=== PATIENT | female | born 1965 | race Caucasian/White ===

== ENCOUNTER 2016-06-21 11:22 | Outpatient (CLI) | payer OTHER | END 2016-06-21 11:23 | disposition home or self-care (01) | DX: K76.0 Fatty (change of) liver, not elsewhere classified (principal); R79.89 Other specified abnormal findings of blood chemistry ==

== ENCOUNTER 2016-06-22 15:46 | Outpatient (CLI) | payer OTHER | END 2016-06-22 15:47 | disposition home or self-care (01) | DX: G47.33 Obstructive sleep apnea (adult) (pediatric) (principal) ==

== ENCOUNTER 2016-08-04 05:14 | Emergency (ER) | payer OTHER ==
[2016-08-04] MEDS ORDERED: HYDROmorphone 1 MG/ML SYRINGE IVP STA ×2 (05:49→10:35)
[2016-08-04] MEDS ORDERED: ONDANSETRON 4 MG/2 ML VIAL IVP STA (05:49)
[2016-08-04] MEDS ORDERED: HYDROmorphone 1 MG/ML SYRINGE ONE ×2 (05:50→10:42)
[2016-08-04] MEDS ORDERED: ONDANSETRON 4 MG/2 ML VIAL ONE (05:50)
[2016-08-04] MEDS: SODIUM CHLORIDE 0.9% 1,000 ML IV STA ×2 (06:11→10:57)
[2016-08-04] MEDS ORDERED: IOPAMIDOL-300 100 ML VIAL IVP ONE (07:13)
[2016-08-04] MEDS ORDERED: AMPICILLIN/SULBACTAM 1.5 GM in SODIUM CHLORIDE 0.9% MINIBAG 100 ML IV STA (10:42)
[2016-08-04] MEDS ORDERED: metroNIDAZOLE 500 MG/100 ML 100 ML IV ONE (10:42)
[2016-08-04] MEDS ORDERED: methylPREDNISolone SUCCINATE 40 MG/ML VIAL IVP STA (11:03)
[2016-08-04] MEDS ORDERED: metroNIDAZOLE 500 MG/100 ML 100 ML ONE (11:22)
[2016-08-04] MEDS ORDERED: methylPREDNISolone SUCCINATE 40 MG/ML VIAL ONE (11:22)
== END 2016-08-04 12:39 | disposition short-term general hospital (02) ==
DX: K50.914 Crohn's disease, unspecified, with abscess (principal); K57.30 Diverticulosis of large intestine without perforation or abscess without bleeding; I10 Essential (primary) hypertension; G47.30 Sleep apnea, unspecified; Z87.891 Personal history of nicotine dependence
CPT/HCPCS: 36415; 74177; 80053; 83690; 85025; 96361; 96374; 96375; 96376; 99284; 99285; J1170; Q9967

== ENCOUNTER 2016-08-04 12:44 | Outpatient (CLI) | payer OTHER | END 2016-08-04 12:45 | disposition short-term general hospital (02) | DX: R10.9 Unspecified abdominal pain (principal) | CPT/HCPCS: A0425; A0427 ==

== ENCOUNTER 2016-09-24 10:29 | Emergency (ER) | payer OTHER ==
--- NOTE | 2016-09-24 11:26 | ED Physician Documentation ---
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 denies: Fever, Chills Throat: denies: Sore throat Cardiac: reports: Chest pain / pressure Respiratory: reports: Dyspnea. denies: Cough GI: denies: Abdominal Pain, Nausea, Vomiting Musculoskeletal: denies: Extremity swelling Endocrine: denies: Easy bruising / bleeding Immunocompromised: denies: Immunocompromised PD PAST MEDICAL HISTORY - Past Medical History Cardiovascular: Hypertension Respiratory: Sleep apnea, CPAP use Neuro: None Endocrine/Autoimmune: None GI: Crohn's disease, Other : None HEENT: None Psych: Depression Musculoskeletal: None Derm: None - Past Surgical History Past Surgical History: Yes General: Colonoscopy - Present Medications Home Medications: Ambulatory Orders Medication Instructions Recorded Confirmed Mesalamine [Delzicol] 400 mg PO QID #120 capsule 02/23/16 09/24/16 Prednisone 10 mg PO DAILY 09/24/16 09/24/16 - Allergies Allergies/Adverse Reactions: Allergies Allergy/AdvReac Type Severity Reaction Status Date / Time No Known Drug Allergies Allergy Verified 08/04/16 05:30 - Social History Does the pt smoke?: No Smoking Status: Former smoker Does the pt drink ETOH?: No Does the pt have substance abuse?: No - Immunizations Immunizations are current?: Yes - POLST Patient has POLST: No PD ED PE NORMAL - Vitals Vital signs reviewed: Yes - General General: Alert and oriented X 3 - HEENT HEENT: Atraumatic - Cardiac Cardiac: RRR - Respiratory Respiratory: No respiratory distress, Clear bilaterally - Abdomen Abdomen: Soft, Non tender - Derm Derm: Normal color - Extremities Extremities: No deformity, No edema, No calf tenderness / cord - Neuro Neuro: Alert and oriented X 3 Results - Vitals Vitals: Vital Signs - 24 hr 09/24/16 09/24/16 09/24/16 10:30 10:35 12:47 Temperature 36.3 C L 36.7 C Heart Rate 71 75 70 Respiratory 19 18 19 Rate Blood Pressure 119/49 L 152/98 H 134/69 H O2 Saturation 98 99 97 09/24/16 09/24/16 09/24/16 14:06 15:30 16:29 Temperature Heart Rate 71 75 78 Respiratory 17 16 15 Rate Blood Pressure 143/83 H 133/65 H 118/57 L O2 Saturation 100 96 96 09/24/16 18:22 Temperature 36.9 C Heart Rate 67 Respiratory 96 H Rate Blood Pressure 126/69 O2 Saturation 16 L Oxygen O2 Source Room air - EKG (time done) 1041 Rate: Rate (enter#) Rhythm: NSR Intervals: Normal PA Ischemia: Normal ST segments - Labs Labs: Laboratory Tests 09/24/16 09/24/16 09/24/16 11:20 11:20 11:20 WBC 10.6 RBC 4.50 Hgb 11.8 L Hct 35.9 L MCV 79.9 L MCH 26.2 L MCHC 32.8 RDW 18.6 H Plt Count 273 MPV 8.6 Neut # 8.7 H Lymph # 1.4 L [place] # 0.4 Eos # 0.0 Baso # 0.1 Absolute Nucleated RBC 0.00 Nucleated RBCs 0.0 Sodium 138 Potassium 3.7 Chloride 104 Carbon Dioxide 25 Anion Gap 9.0 BUN 14 Creatinine 0.8 Estimated GFR (MDRD) 75 L Glucose 139 H Calcium 9.4 Total Bilirubin 0.5 AST 25 ALT 30 Alkaline Phosphatase 84 Troponin I < 0.04 Total Protein 7.3 Albumin 3.8 Globulin 3.5 Albumin/Globulin Ratio 1.1 Lipase 29 - Rads (name of study) CXR Radiology: See rad report (NACPD) PD MEDICAL DECISION MAKING - ED course ED course: EKG trop neg but episodes were brief so doubt AR, more concerned with new onset / untsable angina admitting to [facility] unlikely to be fruitful as pt really needs stress testing which is not available from ER or inpt here called cardio Torie spoke to Dr Ray who will speak with hospitalist re accepting pt in transfer pt given asa in ER as well as nitro paste which relieved the episode of pain she was having tele showed sig ectopy spoke to cardio and then hospitalist at [facility] and pt is accepted in transfer Departure - Departure Disposition: 02 Transfer Acute Care Hosp Clinical Impression: New-onset angina Condition: Good Discharge Date/Time: 09/24/16 18:36
[2016-09-24 11:39] LABS: BASOPHILS # (AUTO) 0.1 10^3/uL (0.0-0.1); BASOPHILS % (AUTO) 0.5 %; EOSINOPHILS % (AUTO) 0.2 %; HCT - HEMATOCRIT 35.9 % (37.0-47.0); HGB - HEMOGLOBIN 11.8 g/dL (12.0-16.0); LYMPHOCYTES # (AUTO) 1.4 10^3/uL (1.5-3.5); LYMPHOCYTES % (AUTO) 13.1 %; MEAN CORPUSCULAR HEMOGLOBIN 26.2 pg (27.0-31.0); MEAN CORPUSCULAR HGB CONC 32.8 g/dL (32.0-36.0); MEAN CORPUSCULAR VOLUME 79.9 fL (81.0-99.0); MEAN PLATELET VOLUME 8.6 fL (7.9-10.8); MONOCYTES # (AUTO) 0.4 10^3/uL (0.0-1.0); MONOCYTES % (AUTO) 3.6 %; NEUTROPHILS # (AUTO) 8.7 10^3/uL (1.5-6.6); NEUTROPHILS % (AUTO) 82.6 %; RED CELL DISTRIBUTION WIDTH 18.6 % (12.0-15.0); UNCORRECTED WHITE BLOOD COUNT 10.6 x10^3/uL; WHITE BLOOD COUNT 10.6 x10^3/uL (4.8-10.8)
[2016-09-24 11:48] LABS: ALBUMIN/GLOBULIN RATIO 1.1 (1.0-2.2); BILIRUBIN,TOTAL 0.5 mg/dL (0.2-1.0); CALCIUM 9.4 mg/dL (8.5-10.3); CREATININE 0.8 mg/dL (0.4-1.0); POTASSIUM 3.7 mmol/L (3.5-5.0); TOTAL PROTEIN 7.3 g/dL (6.7-8.2)
--- NOTE | 2016-09-24 12:15 | XRAY Preliminary Report ---
Exam: XR Chest 2 View PA/LAT IMPRESSION: No active disease [facility] SITE ID: [id number]
--- NOTE | 2016-09-24 12:20 | XRAY Report ---
EXAM: CHEST RADIOGRAPHY EXAM DATE: 09/24/2016 12:01 PM. CLINICAL HISTORY: Chest pain. COMPARISON: 02/05/2016. TECHNIQUE: 2 views. FINDINGS: Lungs/Pleura: No focal opacities evident. No pleural effusion. No pneumothorax. Normal volumes. Mediastinum: Heart and mediastinal contours are unremarkable. Other: None. IMPRESSION: No active disease. [facility] Referring Provider Line: [phone] SITE ID: [id number]
[2016-09-24] MEDS ORDERED: NITROGLYCERIN 2% PASTE TOP ONE (14:02)
[2016-09-24] MEDS ORDERED: ASPIRIN CHEW 81 MG TABLET ONE (14:02)
[2016-09-24] MEDS: ASPIRIN CHEW 81 MG TABLET PO STA (14:04)
[2016-09-24] MEDS: NITROGLYCERIN 2% PASTE TOP STA (14:04)
[2016-09-24] MEDS: MESALAMINE 400 MG CAPSULE PO STA (14:34)
[2016-09-24] MEDS ORDERED: ACETAMINOPHEN 325 MG TABLET PO ONE (17:17)
[2016-09-24] MEDS: ACETAMINOPHEN 325 MG TABLET PO STA (17:19)
[2016-09-24 18:23] VITALS: BP 126/69
== END 2016-09-24 18:36 | disposition short-term general hospital (02) ==
LOC: ED 10:29
DX: I20.9 Angina pectoris, unspecified (principal); I10 Essential (primary) hypertension; G47.30 Sleep apnea, unspecified; K50.90 Crohn's disease, unspecified, without complications; Z87.891 Personal history of nicotine dependence
CPT/HCPCS: 36415; 71020; 80053; 83690; 84484; 85025; 93005; 93010; 99284; 99285

== ENCOUNTER 2016-09-24 18:39 | Outpatient (CLI) | payer OTHER | END 2016-09-24 18:40 | disposition short-term general hospital (02) | DX: R07.9 Chest pain, unspecified (principal) | CPT/HCPCS: A0425; A0426 ==

== ENCOUNTER 2016-10-12 08:52 | Emergency (ER) | payer OTHER ==
[2016-10-12] MEDS ORDERED: SODIUM CHLORIDE 0.9% 1,000 ML IV ONE (09:55)
[2016-10-12] MEDS ORDERED: HYDROmorphone 1 MG/ML SYRINGE IVP STA (10:20)
[2016-10-12] MEDS ORDERED: ONDANSETRON 4 MG/2 ML VIAL IVP STA (10:20)
[2016-10-12] MEDS ORDERED: HYDROmorphone 1 MG/ML SYRINGE ONE (10:20)
[2016-10-12] MEDS ORDERED: ONDANSETRON 4 MG/2 ML VIAL ONE (10:20)
== END 2016-10-12 14:15 | disposition home or self-care (01) ==
DX: K50.014 Crohn's disease of small intestine with abscess (principal); E86.0 Dehydration; M79.602 Pain in left arm; I10 Essential (primary) hypertension; Z87.891 Personal history of nicotine dependence
CPT/HCPCS: 36415; 51701; 80053; 81001; 81003; 83605; 83690; 84484; 85025; 96361; 96374; 96375; 99284; 99285; J1170

== ENCOUNTER 2017-11-27 08:21 | Emergency (ER) | payer BC, OTHER ==
--- NOTE | 2017-11-27 08:52 | ED Physician Documentation ---
PD HPI HEADACHE - Stated complaint Stated Complaint: N/V/HEADACHE - History obtained from History obtained from: Patient PD PAST MEDICAL HISTORY - Past Medical History Cardiovascular: Hypertension Respiratory: Sleep apnea, CPAP use Endocrine/Autoimmune: None GI: GERD, C.difficile, Hemorrhoids, Crohn's disease, Other : None HEENT: None Psych: Depression Musculoskeletal: None Derm: None - Past Surgical History Past Surgical History: Yes General: Colonoscopy - Present Medications Home Medications: Ambulatory Orders Medication Instructions Recorded Confirmed Fluoxetine HCl [Prozac] 40 mg PO DAILY 10/21/16 09/14/17 azaTHIOprine [Imuran] 1 tab ORAL DAILY 12/02/16 07/15/17 Ondansetron Odt [Zofran Odt] 1 tab ORAL Q8HR 09/14/17 09/14/17 - Allergies Allergies/Adverse Reactions: Allergies Allergy/AdvReac Type Severity Reaction Status Date / Time No Known Drug Allergies Allergy Verified 11/27/17 08:40 - Social History Does the pt smoke?: No Smoking Status: Former smoker Does the pt drink ETOH?: No Does the pt have substance abuse?: No - Immunizations Immunizations are current?: Yes - POLST Patient has POLST: No Results - Vitals Vitals: Oxygen O2 Source Room air PD MEDICAL DECISION MAKING - Sepsis Event Vital Signs: Oxygen O2 Source Room air
[2017-11-27] MEDS ORDERED: ONDANSETRON 4 MG/2 ML VIAL IVP STA ×2 (09:08→16:34)
[2017-11-27] MEDS ORDERED: SODIUM CHLORIDE 0.9% 1,000 ML IV ONE ×2 (09:08→10:41)
[2017-11-27] MEDS ORDERED: HYDROmorphone 1 MG/ML CARPUJECT IVP STA ×2 (09:08→16:34)
[2017-11-27] MEDS ORDERED: KETOROLAC 15 MG/ML VIAL IVP STA (09:09)
[2017-11-27] MEDS ORDERED: DEXAMETHASONE 10 MG/ML VIAL IVP STA (09:09)
--- NOTE | 2017-11-27 09:10 | ED Physician Documentation ---
PD HPI ABD PAIN - Stated complaint Stated Complaint: N/V/HEADACHE - Chief complaint Chief Complaint: Abd Pain - History obtained from History obtained from: Patient - History of Present Illness Timing - onset: How many days ago (2) Timing - duration: Days (2) Timing - details: Gradual onset, Still present Quality: Cramping, Aching, Pain Location: Periumbilical, Other (lower abdomen) Improved by: Laying still. No: Eating Worsened by: Position (lying flat), Palpation. No: Eating Associated symptoms: Nausea, Constipation. No: Fever, Vomiting, Diarrhea, Melena, Dysuria, Chest pain, Dizzy Similar symptoms before: Diagnosis (infections or abscesses related to Crohns.) Recently seen: Clinic (She had a Remicade infusion a week ago and usually will feel better within a few days after that. She is having increasing pain since that time.), Other (She had abd MRI done 11/17/17 which showed no liver lesions ( report from [facility])) Review of Systems Constitutional: reports: Myalgias. denies: Fever, Chills Nose: denies: Rhinorrhea / runny nose, Congestion Throat: denies: Sore throat Cardiac: denies: Chest pain / pressure, Palpitations Respiratory: denies: Dyspnea, Cough GI: reports: Abdominal Pain, Nausea, Constipation. denies: Abdominal Swelling, Vomiting, Diarrhea : denies: Dysuria, Frequency Skin: denies: Rash Neurologic: reports: Generalized weakness, Headache. denies: Focal weakness, Numbness, Near syncope Endocrine: denies: Weight loss, Easy bruising / bleeding Immunocompromised: reports: Immunocompromised (Remicaide regularly. h/o Crohns.) PD PAST MEDICAL HISTORY - Past Medical History Cardiovascular: Hypertension Respiratory: Sleep apnea, CPAP use Endocrine/Autoimmune: None GI: GERD, C.difficile, Hemorrhoids, Crohn's disease, Other : None HEENT: None Psych: Depression Musculoskeletal: None Derm: None - Past Surgical History Past Surgical History: Yes General: Colonoscopy - Present Medications Home Medications: Ambulatory Orders Medication Instructions Recorded Confirmed Fluoxetine HCl [Prozac] 40 mg PO DAILY 10/21/16 09/14/17 azaTHIOprine [Imuran] 1 tab ORAL DAILY 12/02/16 07/15/17 Ondansetron Odt [Zofran Odt] 1 tab ORAL Q8HR 09/14/17 09/14/17 - Allergies Allergies/Adverse Reactions: Allergies Allergy/AdvReac Type Severity Reaction Status Date / Time No Known Drug Allergies Allergy Verified 11/27/17 08:40 - Social History Does the pt smoke?: No Smoking Status: Never smoker Does the pt drink ETOH?: No Does the pt have substance abuse?: No - Family History Family history: reports: Non contributory - Immunizations Immunizations are current?: Yes - POLST Patient has POLST: No PD ED PE NORMAL - Vitals Vital signs reviewed: Yes - General General: Alert and oriented X 3, Well developed/nourished, Other (appears in pain. ) - HEENT HEENT: Ears normal, Pharynx benign. No: Moist mucous membranes - Neck Neck: Supple, no meningeal sign, No adenopathy - Cardiac Cardiac: RRR, No murmur - Respiratory Respiratory: Clear bilaterally - Abdomen Abdomen: Soft, Non distended, No organomegaly, Other (Diffuse lower abd tenderness. Tender to percussion with mild rebound. No referred tenderness from upper abd. Bowel sounds diminished. ) - Female Female : Deferred - Rectal Rectal: Deferred - Back Back: No CVA TTP - Derm Derm: Normal color, Warm and dry - Extremities Extremities: No deformity, No tenderness to palpate, Normal ROM s pain, No edema , No calf tenderness / cord - Neuro Neuro: Alert and oriented X 3, No motor deficit, Normal speech Eye Opening: Spontaneous Motor: Obeys Commands Verbal: Oriented GCS Score: 15 - Psych Psych: Normal mood, Normal affect Results - Vitals Vitals: Vital Signs - 24 hr 11/27/17 11/27/17 11/27/17 08:51 08:56 09:00 Temperature 37.3 C 37.3 C Heart Rate 79 80 Respiratory 16 15 Rate Blood Pressure 133/64 H 133/64 H O2 Saturation 100 100 11/27/17 12:48 Temperature Heart Rate 68 Respiratory 16 Rate Blood Pressure 120/68 O2 Saturation 99 Oxygen O2 Source Room air - Labs Labs: Laboratory Tests 11/27/17 11/27/17 11/27/17 08:55 08:55 08:55 WBC 19.8 H RBC 4.72 Hgb 13.9 Hct 42.2 MCV 89.4 MCH 29.4 MCHC 32.8 RDW 14.1 Plt Count 266 MPV 9.0 Neut # (Auto) 16.8 H Lymph # (Auto) 1.1 L [place] # (Auto) 1.7 H Eos # (Auto) 0.0 Baso # (Auto) 0.1 Absolute Nucleated RBC 0.00 Nucleated RBC % 0.0 ESR 27 Sodium 135 Potassium 3.5 Chloride 97 L Carbon Dioxide 24 Anion Gap 14.0 H BUN 11 Creatinine 1.0 Estimated GFR (MDRD) 58 L Glucose 155 H Lactic Acid Calcium 9.5 Total Bilirubin 1.9 H AST 33 ALT 37 Alkaline Phosphatase 115 Total Protein 9.4 H Albumin 4.2 Globulin 5.2 H Albumin/Globulin Ratio 0.8 L Lipase 17 L Urine Color Urine Clarity Urine pH Ur Specific [place] Urine Protein Urine Glucose (UA) Urine Ketones Urine Occult Blood Urine Nitrite Urine Bilirubin Urine Urobilinogen Ur Leukocyte Esterase Urine RBC Urine WBC Ur Squamous Epith Cells Urine Bacteria Ur Microscopic Review Urine Culture Comments 11/27/17 11/27/17 09:36 13:01 WBC RBC Hgb Hct MCV MCH MCHC RDW Plt Count MPV Neut # (Auto) Lymph # (Auto) [place] # (Auto) Eos # (Auto) Baso # (Auto) Absolute Nucleated RBC Nucleated RBC % ESR Sodium Potassium Chloride Carbon Dioxide Anion Gap BUN Creatinine Estimated GFR (MDRD) Glucose Lactic Acid 1.6 Calcium Total Bilirubin AST ALT Alkaline Phosphatase Total Protein Albumin Globulin Albumin/Globulin Ratio Lipase Urine Color DARK YELLOW Urine Clarity CLEAR Urine pH 7.0 Ur Specific [place] 1.010 Urine Protein TRACE Urine Glucose (UA) NEGATIVE Urine Ketones 40 H Urine Occult Blood NEGATIVE Urine Nitrite NEGATIVE Urine Bilirubin NEGATIVE Urine Urobilinogen 1 (NORMAL) Ur Leukocyte Esterase MODERATE H Urine RBC 0-5 Urine WBC 6-10 H Ur Squamous Epith Cells FEW Squamous Urine Bacteria Many H Ur Microscopic Review INDICATED Urine Culture Comments INDICATED - Rads (name of study) abd/pelvic CT Radiology: Prelim report reviewed (several (7-8) liver lesions heterogenous compatible with mets or abscesses. Sigmoid diverticulitis with local inflammation and some local fistulas, comparable to July 2016. ) PD MEDICAL DECISION MAKING - ED course Complexity details: reviewed results (new liver lesions and some diverticulitis , without these lesions present on recent abd MRI, suggesting abscesses. ), re- evaluated patient, considered differential, d/w patient, d/w [facility] consultant (Dr. Goncalves) - Sepsis Event Vital Signs: Vital Signs - 24 hr 11/27/17 11/27/17 11/27/17 08:51 08:56 09:00 Temperature 37.3 C 37.3 C Heart Rate 79 80 Respiratory 16 15 Rate Blood Pressure 133/64 H 133/64 H O2 Saturation 100 100 11/27/17 12:48 Temperature Heart Rate 68 Respiratory 16 Rate Blood Pressure 120/68 O2 Saturation 99 Oxygen O2 Source Room air Departure - Departure Disposition: 02 Transfer Acute Care Hosp Clinical Impression: Exacerbation of Crohn's disease with abscess, Liver abscess, Diverticulitis of gastrointestinal tract Abdominal pain Qualifiers: Abdominal location: lower abdomen, unspecified Qualified Code(s): R10.30 - Lower abdominal pain, unspecified Condition: Stable Record reviewed to determine appropriate education?: Yes
[2017-11-27 09:25] LABS: BASOPHILS # (AUTO) 0.1 10^3/uL (0.0-0.1); BASOPHILS % (AUTO) 0.7 %; HGB - HEMOGLOBIN 13.9 g/dL (12.0-16.0); LYMPHOCYTES # (AUTO) 1.1 10^3/uL (1.5-3.5); LYMPHOCYTES % (AUTO) 5.7 %; MEAN CORPUSCULAR HEMOGLOBIN 29.4 pg (27.0-31.0); MEAN CORPUSCULAR HGB CONC 32.8 g/dL (32.0-36.0); MEAN CORPUSCULAR VOLUME 89.4 fL (81.0-99.0); MONOCYTES # (AUTO) 1.7 10^3/uL (0.0-1.0); MONOCYTES % (AUTO) 8.7 %; NEUTROPHILS # (AUTO) 16.8 10^3/uL (1.5-6.6); NEUTROPHILS % (AUTO) 84.9 %; PLT - PLATELET COUNT 266 10^3/uL (130-450); RED BLOOD COUNT 4.72 10^6/uL (4.20-5.40); RED CELL DISTRIBUTION WIDTH 14.1 % (12.0-15.0); WHITE BLOOD COUNT 19.8 x10^3/uL (4.8-10.8)
[2017-11-27 09:31] LABS: ALBUMIN 4.2 g/dL (3.2-5.5); ALBUMIN/GLOBULIN RATIO 0.8 (1.0-2.2); BILIRUBIN,TOTAL 1.9 mg/dL (0.2-1.0); CALCIUM 9.5 mg/dL (8.5-10.3); TOTAL PROTEIN 9.4 g/dL (6.7-8.2)
[2017-11-27] MEDS ORDERED: IOPAMIDOL-300 100 ML VIAL ONE (11:51)
[2017-11-27] MEDS ORDERED: IOPAMIDOL-300 100 ML VIAL IVP ONE (11:55)
--- NOTE | 2017-11-27 12:54 | CT Report ---
Procedure Date: 11/27/2017 Accession Number: [id number] / [id number] Procedure: CT - Abdomen/Pelvis W/ CPT Code: FULL RESULT: EXAM: CT ABDOMEN AND PELVIS EXAM DATE: 11/27/2017 11:59 AM. CLINICAL HISTORY: Abdominal pain. History of Crohn's. Worse pain and leukocytosis. COMPARISONS: 06/21/2016. 08/04/2016. TECHNIQUE: Routine helical CT imaging was performed through the abdomen and pelvis. IV contrast: 100 mL of Isovue-300. Enteric contrast: No. Reconstructions: Coronal and sagittal. In accordance with CT protocol optimization, one or more of the following dose reduction techniques were utilized for this exam: automated exposure control, adjustment of mA and/or KV based on patient size, or use of iterative reconstructive technique. FINDINGS: Lung Bases: Lung bases are clear. Included portions of the heart are unremarkable. Liver: Interval development of seven new hepatic lesions, heterogeneous, in the left lobe the largest measuring 1.9 x 1.6 cm , in segment 8/6 measuring 2 x 1.7 cm, also present in the inferior right lobe along segment 7/6 measuring 2.2 x 1.5 cm, and inferiorly in the right lobe measuring 2.3 x 2 cm. These are new compared to 08/04/2016. Patent portal vein. Hepatic veins are patent. No intrahepatic ductal dilatation Gallbladder/Bile Ducts: Unremarkable. Spleen: Normal. Pancreas: Normal. Adrenal Glands: Normal. Kidneys: Kidneys enhance symmetrically. No hydronephrosis. No nephrolithiasis. Delayed images are unremarkable of the kidneys. Peritoneal Cavity/Bowel: Stomach is nondistended. No evidence of a small bowel obstruction. Thickening and tethering of a distal small bowel loop in the pelvis with the cecum is again seen, although with less than inflammatory changes. Some tethering and areas of likely fibrosis or fistula tether and extending to the anterior superior presacral space. Small to moderate volume of stool is seen in the colon. Diverticula in the distal colon. Thickening of the mid-lower sigmoid colon . No intra-abdominal fluid collection. Small fatty umbilical hernia. No free air. Appendix not distinctly seen. Pelvic Organs: Urinary bladder is mildly distended and unremarkable. Uterus is unremarkable. No pelvic free fluid. No pelvic fluid collections. There appears to a thin track extending from the distal small bowel/cecum to the sigmoid colon, seen best on axial images 67-70 and on image 75, also extending posteriorly possibly through a fistulous track to the presacral space, although less extensive in appearance compared to 08/04/2016. Vasculature: Vascular calcifications. No aneurysm. Bones: No acute osseous abnormalities. Mild degenerative changes of the lower thoracic and lumbar spine. Other: None. IMPRESSION: 1. Approximately seven new heterogeneous hepatic lesions compared to 08/04/2016. Differential considerations include metastatic lesions versus abscesses. 2. Tethering and areas of fibrosis and likely small areas of fistula formation in the pelvis between distal small bowel, cecum and sigmoid colon, although with significant improvement of inflammatory changes and resolution of the fluid collections compared to 08/04/2016 CT. No new fluid collections. 3. Mild thickening of sigmoid colon which may be due to mild colitis versus focal diverticulitis. 4. Colonic diverticulosis. No bowel obstruction. 5. No nephrolithiasis. No hydronephrosis. [facility]
[2017-11-27 13:10] LABS: GLUCOSE, URINE (UA) NEGATIVE (NEGATIVE); KETONES,URINE (UA) 40 mg/dL (NEGATIVE); LEUKOCYTE ESTERASE, URINE MODERATE (NEGATIVE); NITRITE,URINE NEGATIVE (NEGATIVE); OCCULT BLOOD,URINE NEGATIVE (NEGATIVE); PROTEIN,URINE TRACE mg/dL (NEGATIVE); UROBILINOGEN,URINE 1 (NORMAL) E.U./dL (NORMAL)
[2017-11-27 13:17] LABS: BILIRUBIN,URINE NEGATIVE (NEGATIVE); CLARITY,URINE CLEAR (CLEAR); ICTOTEST,URINE NEGATIVE
[2017-11-27] MEDS ORDERED: AMPICILLIN/SULBACTAM 1.5 GM in SODIUM CHLORIDE 0.9% MINIBAG 100 ML IV STA (13:35)
[2017-11-27 13:37] LABS: BACTERIA,URINE Many /HPF (None Seen); RBC,URINE 0-5 /HPF (0-5); SQUAMOUS EPITHELIAL CELL,UR FEW Squamous (<= Few)
[2017-11-27] MEDS ORDERED: metroNIDAZOLE 500 MG/100 ML 500 MG/100 ML BAG IV ONE (14:29)
[2017-11-27 15:21] VITALS: BP 127/66
[2017-11-27] MEDS ORDERED: HYDROmorphone 1 MG/ML CARPUJECT ONE (16:46)
[2017-11-27] MEDS ORDERED: ONDANSETRON 4 MG/2 ML VIAL ONE (16:46)
== END 2017-11-27 16:45 | disposition short-term general hospital (02) ==
LOC: ED 08:21
DX: K50.914 Crohn's disease, unspecified, with abscess (principal); K75.0 Abscess of liver; K57.92 Diverticulitis of intestine, part unspecified, without perforation or abscess without bleeding; Z79.899 Other long term (current) drug therapy
CPT/HCPCS: 36415; 74177; 80053; 81001; 83605; 83690; 85025; 85651; 87086; 96361; 96365; 96366; 96367; 96375; 96376; 99284; 99285; J1170; Q9967; 81003

== ENCOUNTER 2017-12-28 09:43 | Outpatient (CLI) | payer BC, OTHER ==
[2017-12-28] MEDS ORDERED: IOPAMIDOL-300 50 ML VIAL ONE (10:01)
[2017-12-28] MEDS ORDERED: IOPAMIDOL-300 100 ML VIAL ONE (10:02)
[2017-12-28] MEDS ORDERED: IOPAMIDOL-300 50 ML VIAL PO ONE (11:21)
[2017-12-28] MEDS ORDERED: IOPAMIDOL-300 100 ML VIAL IVP ONE (11:21)
--- NOTE | 2017-12-28 13:51 | CT Report ---
Procedure Date: 12/28/2017 Accession Number: [id number] / [id number] Procedure: CT - Abdomen W/ CPT Code: FULL RESULT: EXAM: Abdomen W/ DATE: 12/28/2017 11:24 AM CLINICAL HISTORY: ABSCESS: LIVER, CHROHNS ILEOCOLITIS COMPARISON: CT abdomen pelvis 11/27/2017. TECHNIQUE: Routine helical CT imaging was performed through the abdomen. IV contrast: 100 mL Isovue 300. Enteric contrast: Yes.. Reconstruction: Coronal and sagittal. In accordance with CT protocol optimization, one or more of the following dose reduction techniques were utilized for this exam: automated exposure control, adjustment of mA and/or KV based on patient size, or use of iterative reconstructive technique. FINDINGS: Lung Bases: Unremarkable. Liver: Some of the previously seen hypodense hepatic masses are not as well-seen on today's exam, a total 5 are clearly identified and have enlarged in size with newly identifiable central enhancement and peripheral hypodensity: Segment II 2.6 x 1.8 cm (previously 1.6 x 2.0 cm). Segment IVb 1.8 x 1.5 cm (remeasurement in similar planes not feasible). Segment V 3.0 x 2.0 cm (previously 2.3 x 1.6 cm). Segment 2.4 x 2.5 cm (previously 2.1 x 1.9 cm). Segment VIII 2.5 x 2.4 cm (previously 1.7 x 1.5 cm). No new hepatic lesions. Gallbladder/Bile Ducts: Unremarkable. Spleen: Normal. Pancreas: Normal. No masses or ductal obstruction. Adrenal Glands: Normal. Kidneys: Normal. No masses or hydronephrosis. Peritoneal Cavity/Bowel: Normal. No free fluid, free air or adenopathy. No masses or acute inflammatory process. Vasculature: No aneurysms or other significant abnormality. Bones: No significant abnormality Other: None. IMPRESSION: Interval enlargement of multiple previously seen hepatic lesions, while some are no longer seen. Interval growth and change in appearance favors metastatic disease, hepatic abscesses/phlegmon not excluded. [facility]
== END 2017-12-28 09:44 | disposition home or self-care (01) ==
LOC: DI 09:43
PROVIDERS: ATTEND Internal Medicine
DX: K75.0 Abscess of liver (principal); K50.80 Crohn's disease of both small and large intestine without complications; K76.9 Liver disease, unspecified
CPT/HCPCS: 74160; Q9967

== ENCOUNTER 2018-01-12 08:44 | Outpatient (CLI) | payer BC, OTHER | END 2018-01-12 08:45 | disposition home or self-care (01) | LOC: SC 08:44 | PROVIDERS: ATTEND Nurse Practitioner Family | DX: G47.33 Obstructive sleep apnea (adult) (pediatric) (principal) | CPT/HCPCS: 99212; 99214 ==

== ENCOUNTER 2018-01-13 06:14 | Outpatient (CLI) | payer BC, OTHER ==
[2018-01-13] MEDS ORDERED: IOPAMIDOL-300 100 ML VIAL ONE (06:32)
[2018-01-13 07:02] LABS: CREATININE 0.7 mg/dL (0.4-1.0)
[2018-01-13] MEDS ORDERED: IOPAMIDOL-300 100 ML VIAL IVP ONE (07:35)
--- NOTE | 2018-01-13 09:42 | CT Report ---
Reason: ABNORMAL ABDOMINAL IMAGING,ABSCESS,LIVER Procedure Date: 01/13/2018 Accession Number: [id number] / [id number] Procedure: CT - Abdomen W/WO CPT Code: FULL RESULT: EXAM: CT ABDOMEN WITHOUT AND WITH CONTRAST EXAM DATE: 01/13/2018 07:33 AM. HISTORY: Liver abscess. COMPARISON: Abdomen w/contrast 12/28/2017 11:00 AM. TECHNIQUE: Routine helical CT imaging was performed through the abdomen before and after administration of IV contrast: 100 mL Isovue 300. Enteric contrast: No. Reconstruction: Coronal and sagittal. In accordance with CT protocol optimization, one or more of the following dose reduction techniques were utilized for this exam: automated exposure control, adjustment of mA and/or KV based on patient size, or use of iterative reconstructive technique. FINDINGS: Lung Bases: Unremarkable. Liver: As before, several liver lesions are demonstrated. In the interval, the liver lesions have mildly decreased in size and appear more homogeneously hypodense in appearance. Dominant lesion in segment 6 now measures 18 mm, previously 28 mm. Dominant lesion in segment 5 now measures 23 mm, previously 27 mm (image 29 and 32, series 6). No new liver lesion is demonstrated. The portal and hepatic veins are diffusely patent. Gallbladder/Bile Ducts: Unremarkable. Spleen: Normal. Pancreas: Normal. No masses or ductal obstruction. Adrenal Glands: Normal. Kidneys: Normal. No masses or hydronephrosis. Peritoneal Cavity/Bowel: Visualized bowel loops are grossly intact. No free fluid is seen in the abdomen. No adenopathy. vasculature: No aneurysms or other significant abnormality. Bones: No significant abnormality. Other: None. IMPRESSION: 1. Short interval mild decrease in size of several scattered liver nodules. No new liver lesion or parenchymal abnormality is demonstrated. Findings suggest inflammatory/infectious process such as multiple liver abscesses given the short interval improvement. 2. Remainder intra-abdominal structures are within normal limits. [facility]
== END 2018-01-13 06:15 | disposition home or self-care (01) ==
LOC: DI 06:14
PROVIDERS: ATTEND Internal Medicine
DX: K75.0 Abscess of liver (principal); R93.5 Abnormal findings on diagnostic imaging of other abdominal regions, including retroperitoneum
CPT/HCPCS: 36415; 74170; 82565; 84520; Q9967

== ENCOUNTER 2018-03-18 14:14 | Emergency (ER) | payer BC, OTHER ==
[2018-03-18] MEDS ORDERED: PROMETHAZINE INJ 25 MG in SODIUM CHLORIDE 0.9% 50 ML IV STA (14:28)
[2018-03-18] MEDS ORDERED: SODIUM CHLORIDE 0.9% 1,000 ML IV ONE (14:28)
[2018-03-18] MEDS ORDERED: HYDROmorphone 1 MG/ML CARPUJECT IVP STA (14:28)
--- NOTE | 2018-03-18 14:31 | ED Physician Documentation ---
PD HPI ABD PAIN - Stated complaint Stated Complaint: N/V/D - Chief complaint Chief Complaint: Abd Pain - History obtained from History obtained from: Patient - History of Present Illness Timing - onset: Other (Diagnosed with Crohn's a couple of years ago. In December she was hospitalized for liver masses which she says turned out to be hepatic abscesses based on some sort of iron drainage procedure. Other than that she has not had any history of abdominal surgeries. She was maintained on 3 antibiotics via PICC line and improved until about a week ago when she developed lower abdominal pain with diarrhea and slight blood, nausea but no vomiting. She been taking Zofran and a pain killer at home without relief. Otherwise her Crohn's is only treated with Remicade right now. She is not on oral steroids and not mesalamine.) Review of Systems Ten Systems: 10 systems reviewed and negative Constitutional: denies: Fever, Chills Cardiac: denies: Chest pain / pressure, Palpitations Respiratory: denies: Dyspnea, Cough GI: reports: Abdominal Pain, Nausea, Diarrhea, Bloody / black stool. denies: Vomiting : denies: Dysuria, Frequency PD PAST MEDICAL HISTORY - Past Medical History Cardiovascular: Hypertension Respiratory: Sleep apnea, CPAP use Endocrine/Autoimmune: None GI: GERD, C.difficile, Hemorrhoids, Crohn's disease, Other : None HEENT: None Psych: Depression Musculoskeletal: None Derm: None - Past Surgical History Past Surgical History: Yes General: Colonoscopy - Present Medications Home Medications: Ambulatory Orders Medication Instructions Recorded Confirmed Fluoxetine HCl [Prozac] 40 mg PO DAILY 10/21/16 02/06/18 Ondansetron Odt [Zofran Odt] 1 tab ORAL Q8HR 09/14/17 02/06/18 Lisinopril/Hydrochlorothiazide 1 each PO DAILY 02/06/18 02/06/18 [Lisinopril-Hctz 10-12.5 mg Tab] - Allergies Allergies/Adverse Reactions: Allergies Allergy/AdvReac Type Severity Reaction Status Date / Time No Known Drug Allergies Allergy Verified 02/06/18 14:47 - Social History Does the pt smoke?: No Smoking Status: Never smoker Does the pt drink ETOH?: No Does the pt have substance abuse?: No - Immunizations Immunizations are current?: Yes - POLST Patient has POLST: No PD ED PE NORMAL - Vitals Vital signs reviewed: Yes - General General: Alert and oriented X 3, No acute distress - HEENT HEENT: PERRL, EOMI - Neck Neck: Supple, no meningeal sign, No bony TTP - Cardiac Cardiac: RRR, No murmur - Respiratory Respiratory: No respiratory distress, Clear bilaterally - Abdomen Abdomen: Normal bowel sounds, Soft, Non tender - Back Back: No CVA TTP, No spinal TTP - Extremities Extremities: No edema, No calf tenderness / cord - Neuro Neuro: Alert and oriented X 3, Normal speech - Psych Psych: Normal mood, Normal affect Results - Vitals Vitals: Vital Signs - 24 hr 03/18/18 03/18/18 03/18/18 14:20 15:05 16:38 Temperature 36.3 C L Heart Rate 88 75 60 Respiratory 20 16 16 Rate Blood Pressure 176/95 H 121/67 150/71 H O2 Saturation 100 100 100 Oxygen O2 Source Room air - Labs Labs: Laboratory Tests 03/18/18 03/18/18 03/18/18 14:40 14:40 14:40 WBC 8.9 RBC 4.50 Hgb 13.0 Hct 38.4 MCV 85.3 MCH 28.8 MCHC 33.7 RDW 13.9 Plt Count 283 MPV 8.3 Neut # (Auto) 6.9 H Lymph # (Auto) 1.4 L Lynn # (Auto) 0.5 Eos # (Auto) 0.1 Baso # (Auto) 0.0 Absolute Nucleated RBC 0.00 Nucleated RBC % 0.0 ESR 43 H Sodium 135 Potassium 3.3 L Chloride 99 L Carbon Dioxide 25 Anion Gap 11.0 BUN 14 Creatinine 0.9 Estimated GFR (MDRD) 65 L Glucose 121 H Calcium 9.4 Total Bilirubin 0.5 AST 22 ALT 21 Alkaline Phosphatase 120 C-Reactive Protein Total Protein 8.4 H Albumin 4.0 Globulin 4.4 H Albumin/Globulin Ratio 0.9 L Lipase 23 03/18/18 14:40 WBC RBC Hgb Hct MCV MCH MCHC RDW Plt Count MPV Neut # (Auto) Lymph # (Auto) Lynn # (Auto) Eos # (Auto) Baso # (Auto) Absolute Nucleated RBC Nucleated RBC % ESR Sodium Potassium Chloride Carbon Dioxide Anion Gap BUN Creatinine Estimated GFR (MDRD) Glucose Calcium Total Bilirubin AST ALT Alkaline Phosphatase C-Reactive Protein 2.0 H Total Protein Albumin Globulin Albumin/Globulin Ratio Lipase - Rads (name of study) CT A/P Radiology: EMP read contemporaneously (1. New multifocal fistulization between the distal sigmoid colon and terminal ileum, and fistulization between the appendix versus terminal ileum and the mid sigmoid colon, with associated abscesses in the sigmoid colon wall and presacral region, more likely related to Crohn's disease, less likely diverticulitis. 2. Continued involution of previously demonstrated liver abscesses, with small residual abscesses versus subcapsular scarring in the inferior right hepatic lobe.) PD MEDICAL DECISION MAKING - ED course ED course: 52-year-old woman with Crohn's disease maintained on Remicade with recent admission for liver abscesses presents now with pelvic pain, benign exam and vital signs and reassuring white count but found to have pelvic and presacral abscesses and a sigmoid abscess related fistulous tracts likely due to the Crohn's disease. Case discussed by phone with the on-call surgeon here, Dr. Kincaid who feels that given the complexity of the case and potential need for GI and IR consultation would likely benefit from transfer to a tertiary facility and [facility] gastroenterology was paged for consult at 4:[address]. [address] Segovia shortly after that who deferred to the hospitalist for admission and she was accepted by Dr. Blunt to the [facility] at 5 PM and cobras were completed. I did discuss previous Culture results with Dr. Blunt who noted light growth of strep and we agreed on ceftriaxone and Flagyl for broad-spectrum intra-abdominal coverage and streptococcal coverage. Departure - Departure Disposition: 02 Transfer Acute Care Hosp Clinical Impression: Exacerbation of Crohn's disease with abscess Condition: Serious
[2018-03-18] MEDS ORDERED: IOPAMIDOL-300 100 ML VIAL ONE (14:34)
[2018-03-18 14:47] LABS: BASOPHILS % (AUTO) 0.4 %; EOSINOPHILS # (AUTO) 0.1 10^3/uL (0.0-0.7); EOSINOPHILS % (AUTO) 0.9 %; LYMPHOCYTES # (AUTO) 1.4 10^3/uL (1.5-3.5); LYMPHOCYTES % (AUTO) 15.8 %; MEAN CORPUSCULAR HEMOGLOBIN 28.8 pg (27.0-31.0); MEAN CORPUSCULAR HGB CONC 33.7 g/dL (32.0-36.0); MEAN CORPUSCULAR VOLUME 85.3 fL (81.0-99.0); MEAN PLATELET VOLUME 8.3 fL (7.9-10.8); MONOCYTES # (AUTO) 0.5 10^3/uL (0.0-1.0); MONOCYTES % (AUTO) 5.6 %; NEUTROPHILS # (AUTO) 6.9 10^3/uL (1.5-6.6); NEUTROPHILS % (AUTO) 77.3 %; PLT - PLATELET COUNT 283 10^3/uL (130-450); RED CELL DISTRIBUTION WIDTH 13.9 % (12.0-15.0); WHITE BLOOD COUNT 8.9 x10^3/uL (4.8-10.8)
[2018-03-18 15:02] LABS: ALBUMIN/GLOBULIN RATIO 0.9 (1.0-2.2); BILIRUBIN,TOTAL 0.5 mg/dL (0.2-1.0); CALCIUM 9.4 mg/dL (8.5-10.3); CREATININE 0.9 mg/dL (0.4-1.0); TOTAL PROTEIN 8.4 g/dL (6.7-8.2)
[2018-03-18] MEDS ORDERED: IOPAMIDOL-300 100 ML VIAL IVP ONE (15:33)
--- NOTE | 2018-03-18 16:27 | CT Report ---
Reason: IV only, abd pain, previous liver abscess Procedure Date: 03/18/2018 Accession Number: [id number] / [id number] Procedure: CT - Abdomen/Pelvis W/ CPT Code: FULL RESULT: EXAM: CT ABDOMEN AND PELVIS EXAM DATE: 03/18/2018 03:30 PM. CLINICAL HISTORY: Abdominal pain. History of liver abscess and Crohn's disease. No prior surgery. COMPARISONS: ABDOMEN W/ 12/28/2017 11:00 AM ABDOMEN/PELVIS W/ 01/27/2016 9:34 PM ABDOMEN W/WO 01/13/2018 7:25 AM. TECHNIQUE: Routine helical CT imaging was performed through the abdomen and pelvis. IV contrast: ISOVUE 300 100mL. Enteric contrast: No. Reconstructions: Coronal and sagittal. In accordance with CT protocol optimization, one or more of the following dose reduction techniques were utilized for this exam: automated exposure control, adjustment of mA and/or KV based on patient size, or use of iterative reconstructive technique. FINDINGS: Lung Bases: Stable 5 mm peripheral left lower lobe nodule (3/). Liver: Two residual hypoattenuating areas with overlying subcapsular retraction in the inferior right hepatic lobe at site of previously demonstrated abscesses: 1. Segment 5, 1.6 x 0.8 cm (), previously 2.2 x 1.4 cm. 2. Segment 6, 1.5 x 1.2 cm (36), previously 2.3 x 1.6 cm. No new focal hepatic lesion. Gallbladder/Bile Ducts: Unremarkable. No visualized stones or biliary ductal dilatation. Spleen: Normal. Pancreas: Normal. Adrenal Glands: Normal. Kidneys and Ureters: Normal. No stones, hydronephrosis, or hydroureter. Peritoneal Cavity/Bowel: Sigmoid diverticulosis. New multifocal fistula between the distal sigmoid colon and terminal ileum with at least 3 fistulous tracts ( and 42). Fistulous communication between the appendix and mid sigmoid colon, versus additional fistulous tract extending from the terminal ileum to the mid sigmoid colon, with associated abscess in the superomedial colon wall measuring 1.9 x 1.0 x 1.4 cm (-70; 35 and 36). Associated with the fistulae is a new rim-enhancing fluid collection which extends posteriorly from the terminal ileal wall to the anterior surface of the sacrum measuring approximately 5.0 x 1.7 x 2.0 cm (365; 5/44). New multifocal thickening of the sigmoid colon wall at the sites of fistulization. The terminal ileal wall is thickened, as before. No evidence for associated bowel obstruction. Multiple prominent subcentimeter lymph nodes in the area of inflammation, the largest 0.6 cm (3/71), presumably reactive. Pelvic Organs: The right ovary is not well seen. The bladder, uterus, and left ovary are within normal limits. Vasculature: Trace atherosclerotic calcifications within the aorta and proximal common iliac arteries. Bones: No significant abnormality. Other: Tiny fat-containing umbilical hernia. IMPRESSION: 1. New multifocal fistulization between the distal sigmoid colon and terminal ileum, and fistulization between the appendix versus terminal ileum and the mid sigmoid colon, with associated abscesses in the sigmoid colon wall and presacral region, more likely related to Crohn's disease, less likely diverticulitis. 2. Continued involution of previously demonstrated liver abscesses, with small residual abscesses versus subcapsular scarring in the inferior right hepatic lobe. RADIA The above findings were discussed with Asim Mendoza by Dr. Lupe Jaquez at 16:17 hrs on 03/18/18.
[2018-03-18] MEDS ORDERED: cefTRIAXone 2 GM in SODIUM CHLORIDE 0.9% MINIBAG 100 ML IV STA (17:14)
[2018-03-18] MEDS ORDERED: metroNIDAZOLE 500 MG/100 ML 500 MG/100 ML BAG IV ONE (17:14)
[2018-03-18 17:48] VITALS: BP 113/75
== END 2018-03-18 18:27 | disposition short-term general hospital (02) ==
LOC: ED 14:14
DX: K50.914 Crohn's disease, unspecified, with abscess (principal); I10 Essential (primary) hypertension; Z79.899 Other long term (current) drug therapy
CPT/HCPCS: 36415; 74177; 80053; 83690; 85025; 85651; 86140; 87040; 96361; 96365; 96368; 96375; 99284; 99285; J1170; J7040; Q9967

== ENCOUNTER 2018-03-18 18:32 | Outpatient (CLI) | payer BC, OTHER | END 2018-03-18 18:33 | disposition short-term general hospital (02) | LOC: EMS 18:32 | PROVIDERS: ATTEND Surgery | DX: R10.30 Lower abdominal pain, unspecified (principal) | CPT/HCPCS: A0170; A0425; A0426 ==

== ENCOUNTER 2018-03-22 13:24 | Day surgery (SDC) | payer BC, OTHER ==
[2018-03-22 13:47] VITALS: BP 113/72
--- NOTE | 2018-03-22 15:34 | XRAY Report ---
Reason: picc line Procedure Date: 03/22/2018 Accession Number: [id number] / [id number] Procedure: XR - Chest for Line Placement CPT Code: FULL RESULT: EXAM: CHEST RADIOGRAPHY EXAM DATE: 03/22/2018 03:13 PM. CLINICAL HISTORY: PICC line. COMPARISON: Chest 2 views 09/24/2016. TECHNIQUE: 1 view. FINDINGS: Lungs/Pleura: No focal opacities evident. No pleural effusion. No pneumothorax. Mediastinum: Within exam limitations, the cardiomediastinal contour is normal. Other: Overlying digital hardware likely represents line tracking device. Left side approach PICC terminates at the region of the juncture of the innominate vein with the SVC. IMPRESSION: Interval left PICC as described. RADIA
== END 2018-03-22 13:25 | disposition home or self-care (01) ==
LOC: SDS 13:24
PROVIDERS: ATTEND Nurse Anesthetist, Certified Registered
PROC: 02HV33Z Insertion of Infusion Device into Superior Vena Cava, Percutaneous Approach (ICD-10-PCS; principal; 2018-03-22 14:00)
DX: K65.1 Peritoneal abscess (principal)
CPT/HCPCS: 36569; C1751; 71045

== ENCOUNTER 2018-05-30 13:08 | Emergency (ER) | payer BC, OTHER ==
[2018-05-30] MEDS ORDERED: oxyCODONE 5 MG TABLET PO STA (13:23)
[2018-05-30] MEDS ORDERED: LIDOCAINE 2%-EPI 1:100000 20 ML MDV SUBQ STA (13:23)
--- NOTE | 2018-05-30 13:53 | ED Physician Documentation ---
History of Present Illness - Stated complaint Stated Complaint: R ANKLE PX - Chief complaint Chief Complaint: Ext Problem - History obtained from History obtained from: Patient, Family - History of Present Illness Pain level max: 8 Pain level now: 6 Improved by: steroids Worsened by: walking - Additonal information Additional information: 52-year-old female presents to the emergency department with swelling and pain all days. Seen here a few weeks ago for same and symptoms resolved with steroids. She was seen by her PCP today who was concerned about potential septic joint, [place] emergently for analysis and sent the patient was sent here for evaluation. She is not having fevers. She is walking on the ankle still. Patient does have Crohn's disease and is on Remicade Review of Systems Constitutional: denies: Fever, Chills GI: denies: Vomiting Skin: denies: Rash PD PAST MEDICAL HISTORY - Past Medical History Cardiovascular: Hypertension Respiratory: Sleep apnea, CPAP use Endocrine/Autoimmune: None GI: GERD, C.difficile, Hemorrhoids, Crohn's disease, Other : None HEENT: None Psych: Depression Musculoskeletal: None Derm: None - Past Surgical History Past Surgical History: Yes General: Colonoscopy - Present Medications Home Medications: Ambulatory Orders Medication Instructions Recorded Confirmed Fluoxetine HCl [Prozac] 40 mg PO DAILY 10/21/16 04/27/18 Apixaban [Eliquis] 10 mg PO DAILY 04/27/18 04/27/18 Ascorbic Acid [Vitamin C] 1,000 mg PO DAILY 04/27/18 04/27/18 Lisinopril 2 tab PO DAILY 04/27/18 04/27/18 Multivitamin [Multiple Vitamins] 1 tab PO DAILY 04/27/18 04/27/18 azaTHIOprine [Azathioprine] 2 tab PO DAILY 04/27/18 04/27/18 Oxycodone HCl/Acetaminophen 1 - 2 each PO Q6H PRN #14 tablet 05/17/18 [Percocet 5-325 mg Tablet] predniSONE [Deltasone] 10 mg PO [id number] #42 tab 05/17/18 - Allergies Allergies/Adverse Reactions: Allergies Allergy/AdvReac Type Severity Reaction Status Date / Time No Known Drug Allergies Allergy Verified 05/17/18 17:36 - Social History Does the pt smoke?: No Smoking Status: Never smoker Does the pt drink ETOH?: No Does the pt have substance abuse?: No - Immunizations Immunizations are current?: Yes - POLST Patient has POLST: No PD ED PE NORMAL - Vitals Vital signs reviewed: Yes - General General: Alert and oriented X 3, No acute distress - Neck Neck: Supple, no meningeal sign - Derm Derm: Warm and dry - Extremities Extremities: No deformity, Other (Pain with ROM of the R ankle NVI. No deformity. No skin changes. ) - Neuro Neuro: Alert and oriented X 3 - Psych Psych: Normal mood, Normal affect Results - Vitals Vitals: Oxygen O2 Source Room air - Labs Labs: Microbiology 05/30/18 13:30 Body Fluid Culture - Preliminary Other - Left Foot 05/30/18 13:30 Gram Stain - Final Foot - Left Laboratory Tests 05/30/18 05/30/18 13:30 13:30 Fluid Source SYNOVIAL Fluid Color YELLOW Fluid Clarity CLOUDY Fluid WBC 61317 Fluid RBC 5873 Fluid Neutrophils % 87 Fluid Lymphocytes % 3 Fluid Monocytes % 2 Fluid Macrophages % 8 Fld Mesothelial Cell % Not Reportable Fluid Crystals NONE SEEN PD MEDICAL DECISION MAKING - ED course Complexity details: re-evaluated patient, considered differential, d/w patient, d/w family, d/w nutrition consultant ED course: 52 year old female with R ankle pain. Orthopedics consulted who performed an arthrocentesis and steroid injection. Will follow up with her PCP for further care. Pt is well appearing, non-toxic. afebrile. Patient counseled regarding signs and symptoms for which I believe and urgent re-evaluation would be necessary. Patient with good understanding of and agreement to plan and is comfortable going home at this time This document was made in part using voice recognition software. While efforts are made to proofread this document, sound alike and grammatical errors may occur. Departure - Departure Disposition: Home, Self Care Clinical Impression: Right ankle effusion Condition: Good Instructions: Arthritis Follow-Up: LEXI [facility] MD [Primary Care Provider] - Within 1 week Comments: Return if you worsen. Follow up with your doctor for further care. Discharge Date/Time: 05/30/18 14:30
[2018-05-30 14:04] LABS: CC,BF RBC 5873 /mm^3
[2018-05-30 14:09] LABS: BF COLOR YELLOW
[2018-05-30 14:29] VITALS: BP 118/68
[2018-05-30 14:31] LABS: LYMPHOCYTES %,BODY FLUID 3; MONOCYTES %,BODY FLUID 2 %
[2018-05-30 14:32] LABS: BF SOURCE SYNOVIAL; MACROPHAGES %,BODY FLUID 8 %
--- NOTE | 2018-05-31 08:40 | CONSULTATION NOTE ---
DATE OF SERVICE: 05/30/2018 Physician: Katya Ascencio MD REQUESTING PHYSICIAN: Dr. Ricardo Bowers. REASON FOR CONSULTATION: Right ankle swelling and pain. HISTORY OF PRESENT ILLNESS: Patient is a 52-year-old female who was in the care of the [facility] physicians, and for the last three weeks, she has had intermittent right ankle swelling. The patient has not been in extreme pain and has been able to ambulate, and has not routinely had fevers or chills, but today she presented for further workup and was told she needed an ankle aspiration, and [place], neither with her primary care or her orthopedic surgeons or there was some type of lab problem. For this reason, arrangement was made for her to be seen in the emergency room. PAST MEDICAL HISTORY: The patient's prior medical history is remarkable for ulcerative colitis or Crohn disease. MEDICATION: The patient is on anti-inflammatory medications with minimal benefit. She has been on antibiotics. She has not had a joint infection in the past. FAMILY HISTORY: She is negative for family history of gout, but there is some concern of whether this is a gout attack in her ankle. Her prior medical history and review of systems is documented by Dr. Bowers in his note. PHYSICAL EXAMINATION: Pertinent orthopedic physical exam shows this patient to be comfortable, sitting on a gurney. She is able to stand and walk with a slight limp. Her ankle shows a blush of lateral pink discoloration on the ankle with swelling and a palpable effusion in the ankle with tenderness; but the patient is able to move the ankle well and without any severe pain, and her neurovascular exam of the ankle is normal. She does not presently have other joint complaints. She does not have edema or streaking, redness, upper leg, and no adenopathy is evident. IMAGING: The patient has had x-rays, which are normal. IMPRESSION: The patient has a right ankle effusion. This may be secondary to inflammatory arthritis related to inflammatory bowel disease, or it may be gout. It does not appear to be an infectious septic joint. PROCEDURE Aspiration was performed as follows: The anterolateral ankle was cleaned with Betadine solution, infiltrated with 1% lidocaine, 1 mL An 18-gauge needle was used to withdraw 4 mL of joint fluid from the ankle, which initially returned completely clear with a slight yellowish hue, as expected. There was no purulence. The laboratory tests were obtained on this fluid and cultures obtained. It was felt at this point that it may benefit the patient to have steroid injected into her ankle, so an injection was placed in the ankle comprised of 1 mL of 1% lidocaine and 1 mL of Depo-Medrol 80 mg/mL, which was well tolerated. The patient was then to be discharged from the hospital, return home awaiting lab results, and to follow up with her primary care provider. TD: 05/31/2018 08:23 JUANA
== END 2018-05-30 14:30 | disposition home or self-care (01) ==
LOC: ED 13:08
DX: M25.471 Effusion, right ankle (principal); I10 Essential (primary) hypertension
CPT/HCPCS: 20605; 87070; 87205; 89051; 89060; 99282; 99283; A9270

== ENCOUNTER 2018-06-07 13:25 | Outpatient (CLI) | payer BC, OTHER | END 2018-06-07 13:26 | disposition home or self-care (01) | LOC: LAB 13:25 | PROVIDERS: ATTEND Internal Medicine | DX: K50.80 Crohn's disease of both small and large intestine without complications (principal) | CPT/HCPCS: 36415; 81599; 83520 ==

== ENCOUNTER → 2018-11-24 | Outpatient (CLI) | payer BC, OTHER ==
[2018-11-24 17:57] LABS: BASOPHILS % (AUTO) 0.4 %; EOSINOPHILS # (AUTO) 0.1 10^3/uL (0.0-0.7); EOSINOPHILS % (AUTO) 1.3 %; HGB - HEMOGLOBIN 11.1 g/dL (12.0-16.0); LYMPHOCYTES # (AUTO) 1.5 10^3/uL (1.5-3.5); LYMPHOCYTES % (AUTO) 31.7 %; MEAN CORPUSCULAR HEMOGLOBIN 29.4 pg (27.0-31.0); MEAN CORPUSCULAR HGB CONC 31.5 g/dL (32.0-36.0); MEAN CORPUSCULAR VOLUME 93.4 fL (81.0-99.0); MEAN PLATELET VOLUME 10.7 fL (7.9-10.8); MONOCYTES # (AUTO) 0.5 10^3/uL (0.0-1.0); MONOCYTES % (AUTO) 10.2 %; NEUTROPHILS # (AUTO) 2.6 10^3/uL (1.5-6.6); NEUTROPHILS % (AUTO) 56.4 %; PLT - PLATELET COUNT 209 10^3/uL (130-450); RED BLOOD COUNT 3.77 10^6/uL (4.20-5.40); WHITE BLOOD COUNT 4.6 x10^3/uL (4.8-10.8)
[2018-11-24 18:10] LABS: ALBUMIN 3.7 g/dL (3.2-5.5); ALBUMIN/GLOBULIN RATIO 1.2 (1.0-2.2); BILIRUBIN,TOTAL 0.5 mg/dL (0.2-1.0); CALCIUM 8.8 mg/dL (8.5-10.3); CREATININE 0.7 mg/dL (0.4-1.0); CRP - C-REACTIVE PROTEIN 1.2 mg/dL (0-1.0); TOTAL PROTEIN 6.7 g/dL (6.7-8.2)
== END ==
LOC: LAB.R 08:00
PROVIDERS: ATTEND Internal Medicine
DX: K50.80 Crohn's disease of both small and large intestine without complications (principal); K63.2 Fistula of intestine
CPT/HCPCS: 80053; 85025; 86140

== ENCOUNTER 2019-01-30 12:46 | Outpatient (CLI) | payer OTHER ==
[2019-01-30 13:40] VITALS: BP 110/80
--- NOTE | 2019-01-30 13:40 | SLEEP CARE CONSULTATION ---
Information from patient questionnaire entered by Samia Maynard. I have reviewed and concur with the information entered by Samia Maynard. This document represents the service I personally performed and the decisions made by me, Bety Galicia, RN, MSN, MANAGER ROOM. History of Present Illness Previous diagnosis: Very Severe, Obstructive Sleep Apnea-Hypopnea Syndrome AHI: 69.0 Reason for CPAP/BiPAP follow up: annual Equipment type: CPAP Equipment obtained from: [employer] Mask style: Nasal (Air Fit P10) Mask brand: Resmed Backup mask available: Yes Last cushion change: 2 weeks ago CPAP Compliance Data - Data Reviewed with Patient Average duration of nightly device use: 11 Compliance rate %: 100 (180 days) Current pressure setting (cmH2O): 8-12 Humidity settin Average residual AHI: 3.4 Average large leak: 1 min 54 secs Subjective Patient concerns: reports: dry mouth, nose, throat, other (headache). denies: aerophagia, mask discomfort, air blowing in eyes, mask leak noise, condensation in mask/hose, nasal congestion (intermittent), epistaxis Observed to snore while using device: No Current pressure setting perceived as: comfortable On therapy, patient: reports: sleeping better, awakening more refreshed, more rested overall. denies: drowsiness while driving Initial [place] Sleepiness Scale score: 3 Current [place] Sleepiness Scale score: 0 Allergies and Home Medications Known drug allergies: No Home medication list reviewed: Yes Allergy and home medication list: Effexor 75mg tab one daily Multivitamin Tab two daily Vitamin C Two chewable daily Probiotic 90billion IV Remicade 1100mg every 6 weeks HCTZ-Lisinopril 12.5-10mg tab one daily Biotin [id number] one daily Azathioprine 2 tabs ( 100mg total) daily Eliquis 2 tabs 10mg daily Review of Systems Review of systems same as previous: No (atrial fibrillation treatment, Chrons exacerbation) Physical Exam Blood Pressure: 110/80 Cuff size: long Heart Rate: 72 O2 Saturation: 98 Weight (kg): 254 lb 3.2 oz Impression and Plan 1. Obstructive Sleep Apnea-Hypopnea Syndrome, very severe, with good treatment compliance and good apnea control. On CPAP therapy, the patient has better sleep quality and is more rested overall. For her intermittent nasal dryness, I showed her how her humidity setting is reduced intermittently. I discussed how this can be done accidently when turning off the device. Thus she is advised to check humidifier setting before bedtime. She uses CPAP about 11 hours a night on average. She explained that she will use her PAP if tired and watching TV so won't fall asleep without CPAP which I commended. She also will use it longer when her Chron's exacerbation and requires more sleep. I also reviewed how often she can get equipment and her CPAP cannot be replaced until next year. We also discussed her weight concerns. She is morbidly obese wtih a BMI of 46 which can increase overal health risks. She has tried to lose weight but finds it difficult with her Chrons. Thus she is advised to discuss a diet consultation with her PCP to see if this would help. I will keep her on an autoCPAP range to accomodate for future weight loss. Patient's apnea severity and rationale for treatment to reduce apnea, improve sleep quality and reduce cardiovascular and cerebrovascular events was reviewed. I also reviewed the benefit of consistent device use of CPAP for hypertension, depression and to any auto immune disease because of improvement of sleep efficiency. * Continue CPAP pressure at 8-12 cmH2O * Adjust humidity * Consider diet consultation. 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 * Notify me if snoring with mask or feeling that the pressure is too much or too little * Attempt to lose weight * Return for follow up in 1 year or sooner if concerns arise I spent 100% of this 28 minute visit face to face with the patient with greater than 50% of this was spent time counseling the patient and coordination of care.
== END 2019-01-30 12:47 | disposition home or self-care (01) ==
LOC: SC 12:46
PROVIDERS: ATTEND Nurse Practitioner Family
DX: G47.33 Obstructive sleep apnea (adult) (pediatric) (principal)
CPT/HCPCS: 99212; 99214

== ENCOUNTER 2019-03-21 08:00 | Outpatient (CLI) | payer OTHER | END 2019-03-21 23:59 | disposition home or self-care (01) | LOC: LAB.R 08:00 | PROVIDERS: ATTEND Internal Medicine | DX: K50.80 Crohn's disease of both small and large intestine without complications (principal) | CPT/HCPCS: 81599; 83993 ==

== ENCOUNTER 2020-01-23 12:47 | Outpatient (CLI) | payer OTHER ==
--- NOTE | 2020-01-30 12:56 | Mammography Report ---
BILATERAL DIGITAL SCREENING MAMMOGRAM: 01/23/2020 CLINICAL: Routine screening. Comparison is made to exams dated: 02/12/2013 mammogram, 02/15/2012 mammogram, 12/14/2010 mammogram, an d 11/18/2009 mammogram - [facility]. There are scattered fibroglandular elements in both breasts. No significant masses, calcifications, or other findings are seen in either breast. There has been no significant interval change. IMPRESSION: NEGATIVE There is no mammographic evidence of malignancy. A 1 year screening mammogram is recommended. This exam was interpreted at Station ID: [id number]. NOTE: For mammograms, a report in lay terms will be sent to the patient. Approximately 15% of breast malignancies will not be visualized mammographically. In the management of a palpable breast mass, a negative mammogram must not discourage biopsy of a clinically suspicious lesion. Electronically Signed By: Salvatore Epstein M.D., jr/leirad:01/30/2020 10:21:07 ACR BI-RADS Category 1: Negative [id number] PARENCHYMAL PATTERN: (A) - The breast(s) demonstrate(s) scattered fibroglandular densities. BI-RADS CATEGORY: (1) - 1 RECOMMENDATION: (ANNUAL) - Recommend routine annual screening mammography. [id number] 1 year screening LATERALITY: (B)
== END 2020-01-23 12:48 | disposition home or self-care (01) ==
LOC: DI.N 12:47
PROVIDERS: ATTEND Family Medicine
DX: Z12.31 Encounter for screening mammogram for malignant neoplasm of breast (principal)
CPT/HCPCS: 77067

== ENCOUNTER 2020-02-08 12:42 | Outpatient (CLI) | payer OTHER ==
--- NOTE | 2020-02-08 13:18 | SLEEP CARE CONSULTATION ---
Information from patient questionnaire entered by Samia Maynard. I have reviewed and concur with the information entered by Samia Maynard. This document represents the service I personally performed and the decisions made by , Pat Gaines ARNP. History of Present Illness Service Date and Time: 02/08/2020 1242 Previous diagnosis: Very Severe, Obstructive Sleep Apnea-Hypopnea Syndrome AHI: 69.0 (in 2008) Reason for follow up: annual (last seen 2019) Equipment type: CPAP Equipment obtained from: [employer] (getting supplies as needed) Mask style: Nasal (over the nose) Mask brand: Resmed Backup mask available: Yes (old mask) Last cushion change: in October with the filters Prior sleep studies: Yes Year and Where: 2008 - [facility] Sleep Type of Sleep Study: Polysomnography HPI additional information: NICK URIAS was diagnosed to have very severe, AHI 69, obstructive sleep apnea- hypopnea syndrome and returned today for CPAP therapy annual follow-up. CPAP Compliance Data - Data Reviewed with Patient Average duration of nightly device use: 10.5 Compliance rate %: 100 (180 days) Current pressure setting (cmH2O): 8-12 Humidity settin Average residual AHI: 4.5 Average large leak: 31 sec On Oxygen: No Subjective Patient concerns: reports: mask discomfort (cushion is falling off and headgear is not comfortable). denies: aerophagia, air blowing in eyes, mask leak noise, condensation in mask/hose, nasal congestion, dry mouth, nose, throat, epistaxis, other Observed to snore while using device: No Current pressure setting perceived as: comfortable On therapy, patient: reports: sleeping better, awakening more refreshed, being more awake and alert during the day, more rested overall. denies: drowsiness while driving Initial [place] Sleepiness Scale score: 3 (in 2008) Current [place] Sleepiness Scale score: 1 Allergies and Home Medications Drug allergies reviewed: Yes (NKDA) Home medication list reviewed: Yes (no changes) Review of Systems Review of systems same as previous: Yes (no changes) Physical Exam Heart Rate: 78 O2 Saturation: 99 Height: 5 ft 5.5 in Weight: 252 lb Body Mass Index: 41.3 BMI Classification: Morbidly Obese Impression and Plan 1. Obstructive Sleep Apnea-Hypopnea Syndrome, very severe, with good treatment compliance and good apnea control. On CPAP therapy, there is improved sleep quality and feels more rested overall. Patient is having issues with her mask cushion coming out of the headgear easily and the headgear is not adjusting to her head. It keeps slipping off the back of her head and sliding forward. She states it is just not comfortable and she would like to see if another mask with headgear would work better for her. I will order a mask refitting and have them look at the headgear for adjustment and comfort. Patient's apnea severity and rationale for treatment to reduce apnea, improve sleep quality and reduce cardiovascular and cerebrovascular events was reviewed. I also reviewed the benefit of consistent device use of CPAP for hypertension, autoimmune disorders and depression. Continue auto CPAP pressure at 8-12 cm H2O. Notify me if snoring with the mask or feeling that the pressure is too much or too little. Attempt to lose weight. Mask and headgear refitting Return for follow-up in one year, or sooner if concerns arise. Visit Type: In Office Time Spent with Patient (minutes): 22 Provider Statement: I spent 100% of the Face to Face Visit with the patient with greater than 50% spent counseling the patient and coordination of care.
== END 2020-02-08 12:43 | disposition home or self-care (01) ==
LOC: SC 12:42
PROVIDERS: ATTEND Nurse Practitioner Family
DX: G47.33 Obstructive sleep apnea (adult) (pediatric) (principal); E66.01 Morbid (severe) obesity due to excess calories; Z68.41 Body mass index [BMI] 40.0-44.9, adult
CPT/HCPCS: 99212; 99213

== ENCOUNTER 2020-02-25 12:14 | Emergency (ER) | payer OTHER ==
[2020-02-25 12:43] LABS: BASOPHILS % (AUTO) 0.4 %; EOSINOPHILS % (AUTO) 0.2 %; HGB - HEMOGLOBIN 14.2 g/dL (12.0-16.0); LYMPHOCYTES # (AUTO) 0.6 10^3/uL (1.5-3.5); MEAN CORPUSCULAR HEMOGLOBIN 30.8 pg (27.0-31.0); MEAN CORPUSCULAR HGB CONC 32.4 g/dL (32.0-36.0); MEAN PLATELET VOLUME 10.2 fL (7.9-10.8); MONOCYTES # (AUTO) 0.2 10^3/uL (0.0-1.0); MONOCYTES % (AUTO) 2.2 %; NEUTROPHILS # (AUTO) 9.3 10^3/uL (1.5-6.6); NEUTROPHILS % (AUTO) 90.8 %; PLT - PLATELET COUNT 237 10^3/uL (130-450); RED BLOOD COUNT 4.61 10^6/uL (4.20-5.40); RED CELL DISTRIBUTION WIDTH 13.2 % (12.0-15.0); WHITE BLOOD COUNT 10.3 x10^3/uL (4.8-10.8)
[2020-02-25 12:58] LABS: ALBUMIN 4.3 g/dL (3.2-5.5); ALBUMIN/GLOBULIN RATIO 1.2 (1.0-2.2); BILIRUBIN,TOTAL 1.2 mg/dL (0.2-1.0); CALCIUM 9.6 mg/dL (8.5-10.3); CREATININE 0.9 mg/dL (0.4-1.0); TOTAL PROTEIN 7.9 g/dL (6.7-8.2)
[2020-02-25] MEDS ORDERED: ONDANSETRON ODT 4 MG TABLET TL STA (13:47)
[2020-02-25] MEDS ORDERED: SODIUM CHLORIDE 0.9% 1,000 ML IV STA (14:59)
[2020-02-25] MEDS ORDERED: KETOROLAC 30 MG/ML VIAL IVP STA (14:59)
[2020-02-25] MEDS ORDERED: HYDROmorphone 2 MG/ML VIAL IVP STA (15:00)
[2020-02-25] MEDS ORDERED: PROMETHAZINE INJ 25 MG in SODIUM CHLORIDE 0.9% 50 ML IV STA (15:00)
[2020-02-25 15:01] LABS: BILIRUBIN,URINE NEGATIVE (NEGATIVE); GLUCOSE, URINE (UA) NEGATIVE (NEGATIVE); KETONES,URINE (UA) 40 mg/dL (NEGATIVE); LEUKOCYTE ESTERASE, URINE TRACE (NEGATIVE); NITRITE,URINE NEGATIVE (NEGATIVE); OCCULT BLOOD,URINE NEGATIVE (NEGATIVE); PROTEIN,URINE NEGATIVE (NEGATIVE); UROBILINOGEN,URINE 1 (NORMAL) E.U./dL (NORMAL)
[2020-02-25] MEDS ORDERED: PROMETHAZINE 25 MG/1 ML VIAL ONE (15:16)
[2020-02-25 15:26] LABS: CLARITY,URINE HAZY (CLEAR); RBC,URINE 0-5 /HPF (0-5); SQUAMOUS EPITHELIAL CELL,UR MANY Squamous (<= Few)
[2020-02-25 15:27] LABS: BACTERIA,URINE Few /HPF (None Seen)
--- NOTE | 2020-02-25 16:12 | ED Physician Documentation ---
History of Present Illness - Stated complaint Stated Complaint: NAUSEA/ABD PX - Chief complaint Chief Complaint: Abd Pain - History obtained from History obtained from: Patient - Additonal information Additional information: Patient comes emergency department complaining of migraine headache, back pain, abdominal pain, nausea, vomiting, constipation, though she now has diarrhea. Patient states this started a few days ago. She denies any urinary symptoms. No fevers or chills. No other complaints at this time. Review of Systems Ten Systems: 10 systems reviewed and negative Constitutional: reports: Reviewed and negative Eyes: reports: Reviewed and negative Ears: reports: Reviewed and negative Nose: reports: Reviewed and negative Throat: reports: Reviewed and negative Cardiac: reports: Reviewed and negative Respiratory: reports: Reviewed and negative. denies: Dyspnea, Cough GI: reports: Abdominal Pain, Nausea, Vomiting, Constipation, Diarrhea : reports: Reviewed and negative. denies: Dysuria Skin: reports: Reviewed and negative Musculoskeletal: reports: Back pain. denies: Neck pain, Extremity swelling Neurologic: reports: Headache Psychiatric: reports: Reviewed and negative Endocrine: reports: Reviewed and negative Immunocompromised: reports: Reviewed and negative PD PAST MEDICAL HISTORY - Past Medical History Cardiovascular: Hypertension, Atrial fibrillation Respiratory: Sleep apnea, CPAP use Neuro: None Endocrine/Autoimmune: None GI: GERD, C.difficile, Hemorrhoids, Crohn's disease, Other : None HEENT: None Psych: Depression Musculoskeletal: None Derm: None - Past Surgical History Past Surgical History: Yes General: Colonoscopy - Present Medications Home Medications: Ambulatory Orders Medication Instructions Recorded Confirmed Fluoxetine HCl [Prozac] 40 mg PO DAILY 10/21/16 04/27/18 Apixaban [Eliquis] 10 mg PO DAILY 04/27/18 04/27/18 Ascorbic Acid [Vitamin C] 1,000 mg PO DAILY 04/27/18 04/27/18 Multivitamin [Multiple Vitamins] 1 tab PO DAILY 04/27/18 04/27/18 azaTHIOprine [Azathioprine] 2 tab PO DAILY 04/27/18 04/27/18 lisinopriL [Lisinopril] 2 tab PO DAILY 04/27/18 04/27/18 Oxycodone HCl/Acetaminophen 1 - 2 each PO Q6H PRN #14 tablet 05/17/18 [Percocet 5-325 mg Tablet] predniSONE [Deltasone] 10 mg PO [id number] #42 tab 05/17/18 Ondansetron Odt [Zofran] 4 mg TL Q6H PRN #10 tablet 02/25/20 - Allergies Allergies/Adverse Reactions: Allergies Allergy/AdvReac Type Severity Reaction Status Date / Time No Known Drug Allergies Allergy Verified 02/25/20 12:43 - Social History Does the pt smoke?: No Smoking Status: Never smoker Does the pt drink ETOH?: No Does the pt have substance abuse?: No - Immunizations Immunizations are current?: Yes - POLST Patient has POLST: No PD ED PE NORMAL - Vitals Vital signs reviewed: Yes - General General: Alert and oriented X 3, No acute distress (Patient appears moderately uncomfortable, but otherwise no apparent distress.) - HEENT HEENT: Atraumatic, PERRL, EOMI, Moist mucous membranes - Neck Neck: Supple, no meningeal sign - Cardiac Cardiac: RRR, No murmur - Respiratory Respiratory: Clear bilaterally - Abdomen Abdomen: Soft, Non tender, Non distended - Derm Derm: Normal color, Warm and dry, No rash - Extremities Extremities: No deformity, No edema, No calf tenderness / cord - Neuro Neuro: Alert and oriented X 3, Other (Grossly normal) - Psych Psych: Normal mood, Normal affect Results - Vitals Vitals: Vital Signs - 24 hr 02/25/20 02/25/20 02/25/20 12:43 14:18 15:30 Temperature 36.7 C Heart Rate 93 87 84 Respiratory 24 18 17 Rate Blood Pressure 150/99 H 149/84 H 126/79 O2 Saturation 100 100 100 02/25/20 16:38 Temperature 37.2 C Heart Rate 86 Respiratory 19 Rate Blood Pressure 132/75 H O2 Saturation 100 Oxygen O2 Source Room air - Labs Labs: Laboratory Tests 02/25/20 02/25/20 02/25/20 12:39 12:39 12:39 WBC 10.3 RBC 4.61 Hgb 14.2 Hct 43.8 MCV 95.0 MCH 30.8 MCHC 32.4 RDW 13.2 Plt Count 237 MPV 10.2 Neut # (Auto) 9.3 H Lymph # (Auto) 0.6 L [place] # (Auto) 0.2 Eos # (Auto) 0.0 Baso # (Auto) 0.0 Absolute Nucleated RBC 0.00 Nucleated RBC % 0.0 Sodium 140 Potassium 3.6 Chloride 103 Carbon Dioxide 21 Anion Gap 16.0 H BUN 14 Creatinine 0.9 Estimated GFR (MDRD) 65 L Glucose 156 H Calcium 9.6 Total Bilirubin 1.2 H AST 47 H ALT 43 Alkaline Phosphatase 92 Total Protein 7.9 Albumin 4.3 Globulin 3.6 Albumin/Globulin Ratio 1.2 Lipase 28 Urine Color Urine Clarity Urine pH Ur Specific [place]bert Urine Protein Urine Glucose (UA) Urine Ketones Urine Occult Blood Urine Nitrite Urine Bilirubin Urine Urobilinogen Ur Leukocyte Esterase Urine RBC Urine WBC Ur Squamous Epith Cells Urine Bacteria Ur Microscopic Review Urine Culture Comments Acetaminophen < 10 L 02/25/20 14:45 WBC RBC Hgb Hct MCV MCH MCHC RDW Plt Count MPV Neut # (Auto) Lymph # (Auto) [place] # (Auto) Eos # (Auto) Baso # (Auto) Absolute Nucleated RBC Nucleated RBC % Sodium Potassium Chloride Carbon Dioxide Anion Gap BUN Creatinine Estimated GFR (MDRD) Glucose Calcium Total Bilirubin AST ALT Alkaline Phosphatase Total Protein Albumin Globulin Albumin/Globulin Ratio Lipase Urine Color YELLOW Urine Clarity HAZY Urine pH 7.0 Ur Specific [place] 1.020 Urine Protein NEGATIVE Urine Glucose (UA) NEGATIVE Urine Ketones 40 H Urine Occult Blood NEGATIVE Urine Nitrite NEGATIVE Urine Bilirubin NEGATIVE Urine Urobilinogen 1 (NORMAL) Ur Leukocyte Esterase TRACE H Urine RBC 0-5 Urine WBC 0-3 Ur Squamous Epith Cells MANY Squamous H Urine Bacteria Few Ur Microscopic Review INDICATED Urine Culture Comments NOT INDICATED Acetaminophen PD MEDICAL DECISION MAKING - ED course Complexity details: reviewed results, re-evaluated patient, considered differential, d/w patient ED course: Patient was given IV fluids and Zofran in the emergency department, as well as Phenergan, Toradol, and Dilaudid. The patient's labs are unremarkable. She was found to be feeling better and I feel she is stable for discharge home. We have discussed home management of symptoms as well as usual indications for return and for follow-up. Departure - Departure Disposition: 01 Home, Self Care Clinical Impression: Headache Qualifiers: Headache type: unspecified Headache chronicity pattern: acute headache Intractability: not intractable Qualified Code(s): R51.9 - Headache, unspecified Vomiting Qualifiers: Vomiting type: bilious vomiting Nausea presence: with nausea Qualified Code(s): R11.14 - Bilious vomiting Condition: Stable Instructions: ED Cephalgia Unspecified, ED Nausea Vomiting Prescriptions: Ondansetron Odt [Zofran] 4 mg TL Q6H PRN #10 tablet PRN Reason: Nausea / Vomiting Comments: Your labs look good. There is no evidence of an emergent condition causing your symptoms today. Please take the medication for nausea, as prescribed. If you have further concerns about headache, please follow-up with your primary care physician for further evaluation. Discharge Date/Time: 02/25/20 17:06
[2020-02-25 16:40] VITALS: BP 132/75
== END 2020-02-25 17:06 | disposition home or self-care (01) ==
LOC: ED 12:14
DX: R51.9 Headache, unspecified (principal); R11.14 Bilious vomiting; I10 Essential (primary) hypertension; I48.91 Unspecified atrial fibrillation; Z79.01 Long term (current) use of anticoagulants
CPT/HCPCS: 36415; 80053; 81001; 83690; 85025; 96374; 96375; 99283; 99284; J1170; J7040; Q0162; 80307; 81003; 87086

== ENCOUNTER 2020-03-25 10:36 | Outpatient (CLI) | payer OTHER ==
[2020-03-25] MEDS ORDERED: GADOBUTROL 15 MMOL/15 ML VIAL ONE (11:14)
[2020-03-25] MEDS ORDERED: GADOBUTROL 15 MMOL/15 ML VIAL IVP ONE (12:00)
--- NOTE | 2020-03-25 14:52 | MRI Report ---
PROCEDURE: Brain W/WO INDICATIONS: HEADACHE CONTRAST: IV CONTRAST: Gadavist ml: 11 TECHNIQUE: Noncontrast axial T1 spin echo, axial T2 fast spin echo, sagittal and axial FLAIR, coronal T2 fast sp in echo, axial gradient echo, axial diffusion and ADC through the brain. After the administration of contrast, axial and coronal T1 spin echo with fat saturation through the brain. COMPARISON: None. FINDINGS: Image quality: Excellent. CSF spaces: Basal cisterns are patent. No extra-axial fluid collections. Ventricles are normal in size and shape. Brain: No midline shift. No intracranial bleeds or masses. No abnormal intracranial enhancement. There is minimal periventricular white matter chronic small vessel ischemic change. The brainstem ap pears normal. Diffusion-weighted images demonstrate no acute ischemic insults. No chronic ischemic insults. Normal intravascular flow voids are present. Dural sinuses demonstrate normal postcontrast enhancement. Skull and face: Calvarial marrow is normal in signal. Orbits appear normal. Sinuses: Sinuses and mastoids appear clear. IMPRESSION: 1. No acute intracranial disease process. 2. No abnormal intracranial mass or mass effect. 3. No suspicious postcontrast enhancement Reviewed by: Mckenna Ghosh MD, PhD on 03/25/2020 2:51 PM PST Approved by: Mckenna Ghosh MD, PhD on 03/25/2020 2:51 PM PST Station ID: [id number]
== END 2020-03-25 10:37 | disposition home or self-care (01) ==
LOC: DI 10:36
PROVIDERS: ATTEND Family Medicine
DX: R51.9 Headache, unspecified (principal)
CPT/HCPCS: 70553; A9585

== ENCOUNTER 2020-04-02 09:50 | Outpatient (CLI) | payer OTHER ==
[2020-04-02 13:27] LABS: BASOPHILS % (AUTO) 0.4 %; EOSINOPHILS # (AUTO) 0.1 10^3/uL (0.0-0.7); EOSINOPHILS % (AUTO) 1.7 %; LYMPHOCYTES # (AUTO) 1.4 10^3/uL (1.5-3.5); LYMPHOCYTES % (AUTO) 25.1 %; MEAN CORPUSCULAR VOLUME 96.9 fL (81.0-99.0); MEAN PLATELET VOLUME 10.9 fL (7.9-10.8); MONOCYTES # (AUTO) 0.4 10^3/uL (0.0-1.0); NEUTROPHILS # (AUTO) 3.6 10^3/uL (1.5-6.6); NEUTROPHILS % (AUTO) 65.6 %; PLT - PLATELET COUNT 241 10^3/uL (130-450); RED BLOOD COUNT 4.19 10^6/uL (4.20-5.40); RED CELL DISTRIBUTION WIDTH 13.4 % (12.0-15.0); WHITE BLOOD COUNT 5.4 x10^3/uL (4.8-10.8)
[2020-04-02 14:19] LABS: ALBUMIN/GLOBULIN RATIO 1.3 (1.0-2.2); BILIRUBIN,TOTAL 0.6 mg/dL (0.2-1.0); CALCIUM 9.4 mg/dL (8.5-10.3); CREATININE 0.8 mg/dL (0.4-1.0); TOTAL PROTEIN 7.2 g/dL (6.7-8.2)
== END 2020-04-02 23:59 | disposition home or self-care (01) ==
LOC: LAB.R 09:50
PROVIDERS: ATTEND Internal Medicine
DX: K50.80 Crohn's disease of both small and large intestine without complications (principal)
CPT/HCPCS: 80053; 85025; 85651

== ENCOUNTER 2020-05-14 08:00 | Outpatient (CLI) | payer OTHER ==
[2020-05-14 14:04] LABS: BASOPHILS % (AUTO) 0.4 %; EOSINOPHILS % (AUTO) 0.2 %; HGB - HEMOGLOBIN 13.4 g/dL (12.0-16.0); LYMPHOCYTES # (AUTO) 0.7 10^3/uL (1.5-3.5); LYMPHOCYTES % (AUTO) 11.9 %; MEAN CORPUSCULAR HEMOGLOBIN 30.3 pg (27.0-31.0); MEAN CORPUSCULAR HGB CONC 32.2 g/dL (32.0-36.0); MEAN CORPUSCULAR VOLUME 94.1 fL (81.0-99.0); MEAN PLATELET VOLUME 11.3 fL (7.9-10.8); MONOCYTES # (AUTO) 0.1 10^3/uL (0.0-1.0); NEUTROPHILS # (AUTO) 4.7 10^3/uL (1.5-6.6); NEUTROPHILS % (AUTO) 85.3 %; PLT - PLATELET COUNT 228 10^3/uL (130-450); RED BLOOD COUNT 4.42 10^6/uL (4.20-5.40); RED CELL DISTRIBUTION WIDTH 13.3 % (12.0-15.0); WHITE BLOOD COUNT 5.5 x10^3/uL (4.8-10.8)
[2020-05-14 14:20] LABS: ALBUMIN 4.1 g/dL (3.2-5.5); ALBUMIN/GLOBULIN RATIO 1.1 (1.0-2.2); ALKALINE PHOSPHATASE 58 IU/L (42-121); ALT ALANINE AMINOTRANSFERASE 26 IU/L (10-60); AST ASPARTATE AMINOTRANSFERASE 30 IU/L (10-42); BILIRUBIN,TOTAL 0.7 mg/dL (0.2-1.0); BUN - BLOOD UREA NITROGEN 10 mg/dL (6-20); CALCIUM 9.5 mg/dL (8.5-10.3); CARBON DIOXIDE - CO2 20 mmol/L (21-32); CHLORIDE 104 mmol/L (101-111); CREATININE 0.8 mg/dL (0.4-1.0); GLUCOSE 114 mg/dL (70-100); SODIUM 134 mmol/L (135-145); TOTAL PROTEIN 7.7 g/dL (6.7-8.2)
[2020-05-14 14:21] LABS: CRP - C-REACTIVE PROTEIN < 1.0 mg/dL (0-1.0)
== END 2020-05-14 23:59 | disposition home or self-care (01) ==
LOC: LAB.R 08:00
PROVIDERS: ATTEND Internal Medicine
DX: K50.80 Crohn's disease of both small and large intestine without complications (principal); K63.2 Fistula of intestine; E66.01 Morbid (severe) obesity due to excess calories
CPT/HCPCS: 80053; 85025; 86140

== ENCOUNTER 2020-06-25 10:35 | Outpatient (CLI) | payer OTHER ==
[2020-06-25 15:16] LABS: BASOPHILS % (AUTO) 0.5 %; EOSINOPHILS # (AUTO) 0.1 10^3/uL (0.0-0.7); EOSINOPHILS % (AUTO) 1.5 %; HGB - HEMOGLOBIN 13.7 g/dL (12.0-16.0); LYMPHOCYTES # (AUTO) 1.5 10^3/uL (1.5-3.5); MEAN CORPUSCULAR HEMOGLOBIN 31.5 pg (27.0-31.0); MEAN CORPUSCULAR HGB CONC 33.3 g/dL (32.0-36.0); MEAN CORPUSCULAR VOLUME 94.7 fL (81.0-99.0); MEAN PLATELET VOLUME 11.1 fL (7.9-10.8); MONOCYTES # (AUTO) 0.3 10^3/uL (0.0-1.0); MONOCYTES % (AUTO) 5.5 %; NEUTROPHILS # (AUTO) 3.6 10^3/uL (1.5-6.6); NEUTROPHILS % (AUTO) 65.3 %; PLT - PLATELET COUNT 259 10^3/uL (130-450); RED BLOOD COUNT 4.35 10^6/uL (4.20-5.40); RED CELL DISTRIBUTION WIDTH 13.5 % (12.0-15.0); WHITE BLOOD COUNT 5.5 x10^3/uL (4.8-10.8)
== END 2020-06-25 23:59 | disposition home or self-care (01) ==
LOC: LAB.R 10:35
PROVIDERS: ATTEND Internal Medicine
DX: K50.80 Crohn's disease of both small and large intestine without complications (principal)
CPT/HCPCS: 80053; 85025; 86140

== ENCOUNTER 2020-08-06 07:00 | Outpatient (CLI) | payer OTHER ==
[2020-08-06 13:51] LABS: BASOPHILS % (AUTO) 0.4 %; EOSINOPHILS # (AUTO) 0.1 10^3/uL (0.0-0.7); EOSINOPHILS % (AUTO) 1.2 %; HGB - HEMOGLOBIN 13.6 g/dL (12.0-16.0); LYMPHOCYTES # (AUTO) 1.6 10^3/uL (1.5-3.5); LYMPHOCYTES % (AUTO) 28.7 %; MEAN CORPUSCULAR HEMOGLOBIN 30.5 pg (27.0-31.0); MEAN CORPUSCULAR HGB CONC 31.6 g/dL (32.0-36.0); MEAN CORPUSCULAR VOLUME 96.4 fL (81.0-99.0); MEAN PLATELET VOLUME 11.5 fL (7.9-10.8); MONOCYTES # (AUTO) 0.6 10^3/uL (0.0-1.0); MONOCYTES % (AUTO) 9.6 %; NEUTROPHILS # (AUTO) 3.4 10^3/uL (1.5-6.6); NEUTROPHILS % (AUTO) 59.9 %; PLT - PLATELET COUNT 271 10^3/uL (130-450); RED BLOOD COUNT 4.46 10^6/uL (4.20-5.40); RED CELL DISTRIBUTION WIDTH 13.3 % (12.0-15.0); WHITE BLOOD COUNT 5.7 x10^3/uL (4.8-10.8)
== END 2020-08-06 23:59 | disposition home or self-care (01) ==
LOC: LAB.R 07:00
PROVIDERS: ATTEND Internal Medicine
DX: K50.80 Crohn's disease of both small and large intestine without complications (principal)
CPT/HCPCS: 80053; 85025; 86140

== ENCOUNTER 2020-09-16 15:40 | Outpatient (CLI) | payer MEDICARE, OTHER ==
[2020-09-16 21:02] LABS: BASOPHILS % (AUTO) 0.1 %; EOSINOPHILS % (AUTO) 0.2 %; HCT - HEMATOCRIT 41.3 % (37.0-47.0); HGB - HEMOGLOBIN 13.2 g/dL (12.0-16.0); LYMPHOCYTES # (AUTO) 0.6 10^3/uL (1.5-3.5); LYMPHOCYTES % (AUTO) 7.3 %; MEAN CORPUSCULAR HEMOGLOBIN 30.8 pg (27.0-31.0); MEAN CORPUSCULAR VOLUME 96.5 fL (81.0-99.0); MEAN PLATELET VOLUME 11.4 fL (7.9-10.8); MONOCYTES # (AUTO) 0.1 10^3/uL (0.0-1.0); MONOCYTES % (AUTO) 1.3 %; NEUTROPHILS # (AUTO) 7.7 10^3/uL (1.5-6.6); NEUTROPHILS % (AUTO) 90.7 %; PLT - PLATELET COUNT 239 10^3/uL (130-450); RED BLOOD COUNT 4.28 10^6/uL (4.20-5.40); RED CELL DISTRIBUTION WIDTH 13.5 % (12.0-15.0); WHITE BLOOD COUNT 8.5 x10^3/uL (4.8-10.8)
[2020-09-16 21:14] LABS: ALBUMIN 4.2 g/dL (3.2-5.5); ALBUMIN/GLOBULIN RATIO 1.3 (1.0-2.2); ALKALINE PHOSPHATASE 57 IU/L (42-121); ALT ALANINE AMINOTRANSFERASE 22 IU/L (10-60); AST ASPARTATE AMINOTRANSFERASE 35 IU/L (10-42); BUN - BLOOD UREA NITROGEN 12 mg/dL (6-20); CALCIUM 9.3 mg/dL (8.5-10.3); CARBON DIOXIDE - CO2 23 mmol/L (21-32); CHLORIDE 103 mmol/L (101-111); CREATININE 0.8 mg/dL (0.4-1.0); GFR - MDRD 74 (>89); GLUCOSE 130 mg/dL (70-100); SODIUM 135 mmol/L (135-145); TOTAL PROTEIN 7.5 g/dL (6.7-8.2)
[2020-09-16 21:16] LABS: CRP - C-REACTIVE PROTEIN < 1.0 mg/dL (0-1.0)
== END 2020-09-16 23:59 | disposition home or self-care (01) ==
LOC: LAB.R 15:40
PROVIDERS: ATTEND Internal Medicine
DX: K50.80 Crohn's disease of both small and large intestine without complications (principal)
CPT/HCPCS: 80053; 85025; 86140

== ENCOUNTER 2020-10-29 12:20 | Outpatient (CLI) | payer MEDICARE, OTHER ==
[2020-10-29 13:58] LABS: BASOPHILS % (AUTO) 0.3 %; EOSINOPHILS % (AUTO) 0.2 %; HCT - HEMATOCRIT 39.1 % (37.0-47.0); HGB - HEMOGLOBIN 12.8 g/dL (12.0-16.0); LYMPHOCYTES # (AUTO) 0.3 10^3/uL (1.5-3.5); LYMPHOCYTES % (AUTO) 5.1 %; MEAN CORPUSCULAR HGB CONC 32.7 g/dL (32.0-36.0); MEAN CORPUSCULAR VOLUME 94.7 fL (81.0-99.0); MONOCYTES # (AUTO) 0.2 10^3/uL (0.0-1.0); MONOCYTES % (AUTO) 2.6 %; NEUTROPHILS # (AUTO) 6.1 10^3/uL (1.5-6.6); NEUTROPHILS % (AUTO) 91.5 %; PLT - PLATELET COUNT 220 10^3/uL (130-450); RED BLOOD COUNT 4.13 10^6/uL (4.20-5.40); RED CELL DISTRIBUTION WIDTH 13.2 % (12.0-15.0); WHITE BLOOD COUNT 6.7 x10^3/uL (4.8-10.8)
[2020-10-29 14:34] LABS: ALBUMIN 3.9 g/dL (3.2-5.5); ALBUMIN/GLOBULIN RATIO 1.2 (1.0-2.2); ALKALINE PHOSPHATASE 60 IU/L (42-121); ALT ALANINE AMINOTRANSFERASE 31 IU/L (10-60); AST ASPARTATE AMINOTRANSFERASE 26 IU/L (10-42); BILIRUBIN,TOTAL 0.6 mg/dL (0.2-1.0); BUN - BLOOD UREA NITROGEN 12 mg/dL (6-20); CALCIUM 9.4 mg/dL (8.5-10.3); CARBON DIOXIDE - CO2 21 mmol/L (21-32); CHLORIDE 103 mmol/L (101-111); CREATININE 0.7 mg/dL (0.4-1.0); GFR - MDRD 86 (>89); GLUCOSE 124 mg/dL (70-100); POTASSIUM 4.1 mmol/L (3.5-5.0); SODIUM 137 mmol/L (135-145); TOTAL PROTEIN 7.2 g/dL (6.7-8.2)
[2020-10-29 14:35] LABS: CRP - C-REACTIVE PROTEIN < 1.0 mg/dL (0-1.0)
== END 2020-10-29 23:59 | disposition home or self-care (01) ==
LOC: LAB.R 12:20
PROVIDERS: ATTEND Internal Medicine
DX: K50.80 Crohn's disease of both small and large intestine without complications (principal)
CPT/HCPCS: 80053; 85025; 86140

== ENCOUNTER 2020-11-21 11:41 | Outpatient (CLI) | payer MEDICARE, OTHER ==
--- NOTE | 2020-11-21 12:44 | SLEEP CARE CONSULTATION ---
Information from patient questionnaire entered by Samia Maynard. I have reviewed and concur with the information entered by Samia Maynard. This document represents the service I personally performed and the decisions made by , Pat aGines ARNP. History of Present Illness Service Date and Time: 11/21/2020 1141 Previous diagnosis: Very Severe, Obstructive Sleep Apnea-Hypopnea Syndrome AHI: 69.0 (in 2008) Reason for follow up: other (9 month, wants new CPAP) Equipment type: CPAP Equipment obtained from: [employer] (getting supplies as needed) Mask style: Nasal (over the nose; Comfort Select) Backup mask available: No (will keep old mask when replaced) Last cushion change: 2 months Prior sleep studies: Yes Year and Where: 2008 - [facility] HPI additional information: NICK URIAS was diagnosed to have very severe, AHI 69.0, obstructive sleep apnea-hypopnea syndrome and returned today for CPAP therapy 9 month follow-up for new CPAP. CPAP Compliance Data - Data Reviewed with Patient Average duration of nightly device use: 10 hr 53 min Compliance rate %: 100 (180 days) Current pressure setting (cmH2O): 8-12 Humidity settin Average residual AHI: 3.9 Average large leak: 1 min 32 sec Subjective Patient concerns: reports: mask discomfort (may be too small but she tried a bigger size and it did not work), dry mouth, nose, throat (mouth). denies: aerophagia, air blowing in eyes, mask leak noise, condensation in mask/hose, nasal congestion, epistaxis, other Observed to snore while using device: No Current pressure setting perceived as: comfortable On therapy, patient: reports: sleeping better, awakening more refreshed, being more awake and alert during the day, more rested overall. denies: drowsiness while driving Initial [place] Sleepiness Scale score: 3 (in 2008) Current [place] Sleepiness Scale score: 8 Allergies and Home Medications Home medication list reviewed: Yes (no changes) Review of Systems Review of systems same as previous: Yes (no changes) Physical Exam Heart Rate: 85 O2 Saturation: 98 Height: 5 ft 6 in Weight: 256 lb Body Mass Index: 41.3 BMI Classification: Morbidly Obese Impression and Plan 1. Obstructive Sleep Apnea-Hypopnea Syndrome, very severe, with excellent treatment compliance and good apnea control. On CPAP therapy, the patient has better sleep quality and is more rested overall. Patient is due to update her CPAP machine. She has been using a [employer] for the last 5 years. I informed her of the [employer] recall and how she may register her device on their website which can be found on the [employer] website. Patient voiced understanding. The patients CPAP is over 5 years old and of reasonable use. The new CPAPs also have a better humidity system which could assist control of patients dryness symptoms. A DWO prescription will be made. Compliance guidelines for new device and follow up discussed. Patient's apnea severity and rationale for treatment to reduce apnea, improve sleep quality and reduce cardio vascular and cerebrovascular events was reviewed. I also reviewed the benefit of consistent device use of CPAP for hypertension, autoimmune disorders and depression. * Continue auto CPAP pressure at 8-12 cmH2O * Update machine * Mask refitting * Notify me if snoring with mask or feeling that the pressure is too much or too little * Attempt to lose weight * Call this office if any problems using CPAP * Return for follow up 1 month after updating machine, or sooner if concerns arise Counseling Topics: Spare mask, Weight loss health impact Visit Type: In Office Time Spent with Patient (minutes): 25 Provider Statement: I spent 100% of the Face to Face Visit with the patient with greater than 50% spent counseling the patient and coordination of care.
== END 2020-11-21 11:42 | disposition home or self-care (01) ==
LOC: SC 11:41
PROVIDERS: ATTEND Nurse Practitioner Family
DX: G47.33 Obstructive sleep apnea (adult) (pediatric) (principal); E66.01 Morbid (severe) obesity due to excess calories; Z68.41 Body mass index [BMI] 40.0-44.9, adult
CPT/HCPCS: 99213; G0463; 99212

== ENCOUNTER 2021-01-08 10:00 | Outpatient (CLI) | payer MEDICARE, OTHER ==
--- NOTE | 2021-01-08 10:34 | SLEEP CARE CONSULTATION ---
Information from patient questionnaire entered by Samia Maynard. I have reviewed and concur with the information entered by Samia Maynard. This document represents the service I personally performed and the decisions made by , Pat Gaines ARNP. History of Present Illness Service Date and Time: 01/08/2021 1000 Previous diagnosis: Very Severe, Obstructive Sleep Apnea-Hypopnea Syndrome AHI: 69.0 (in 2008) Reason for follow up: first compliance after device update Equipment type: CPAP Equipment obtained from: [employer] (getting supplies as needed) Mask style: Nasal Mask brand: Respironics (over the nose; Comfort Select) Backup mask available: Yes (old mask) Prior sleep studies: Yes Year and Where: 2008 - [facility] Type of Sleep Study: Polysomnography HPI additional information: NICK URIAS was diagnosed to have very severe, AHI 69.0, obstructive sleep apnea-hypopnea syndrome and returned today for CPAP therapy first compliance after updating device follow-up. CPAP Compliance Data - Data Reviewed with Patient Average duration of nightly device use: 10 hr 8 min Compliance rate %: 100 Current pressure setting (cmH2O): 8-12 Humidity settin Heated hose settin Average residual AHI: 7.0 Average large leak: 11 min 2 sec Subjective Patient concerns: reports: dry mouth, nose, throat (water chamber dry in morning; turned down humidifier; now a little dry mouth). denies: aerophagia, mask discomfort, air blowing in eyes, mask leak noise, condensation in mask/hose, nasal congestion, epistaxis, other Observed to snore while using device: No Current pressure setting perceived as: comfortable On therapy, patient: reports: sleeping better, awakening more refreshed, being more awake and alert during the day, more rested overall. denies: drowsiness while driving Initial [place] Sleepiness Scale score: 3 (in 2008) Current [place] Sleepiness Scale score: 8 Allergies and Home Medications Home medication list reviewed: Yes (no changes) Review of Systems Review of systems same as previous: Yes (no changes) Physical Exam Heart Rate: 90 O2 Saturation: 96 Height: 5 ft 6 in Weight: 254 lb Body Mass Index: 41.0 BMI Classification: Morbidly Obese Impression and Plan 1. Obstructive Sleep Apnea-Hypopnea Syndrome, very severe, with excellent treatment compliance and fair apnea control with mild elevation of residual AHI. On CPAP therapy, the patient has better sleep quality and is more rested overall. Patient has some mild mouth dryness. She states the water chamber in her new device runs out of water by morning. She turned down the humidifier and now is having a little bit of dry mouth. I advised her to try to reduce the heated hose to see if this will help reduce the dryness in her mouth. She voiced understanding. The patients pressure will be changed to autoCPAP 10-12 cmH20 for elevation of residual AHI. Patient advised to contact me if pressure change is uncomfortable so that it can be adjusted. Goals for apnea control discussed. Patient's apnea severity and rationale for treatment to reduce apnea, improve sleep quality and reduce cardiovascular and cerebrovascular events was reviewed. I also reviewed the benefit of consistent device use of CPAP for hypertension and depression. * Change auto CPAP pressure to 10-12 cmH2O * Notify me if snoring with mask or feeling that the pressure is too much or too little * Attempt to lose weight * Call this office if any problems using CPAP * Return for follow up in 1 year, or sooner if concerns arise Counseling Topics: Spare mask, Weight loss health impact Visit Type: In Office Time Spent with Patient (minutes): 20 Provider Statement: I spent 100% of the Face to Face Visit with the patient with greater than 50% spent counseling the patient and coordination of care.
== END 2021-01-08 10:01 | disposition home or self-care (01) ==
LOC: SC 10:00
PROVIDERS: ATTEND Nurse Practitioner Family
DX: G47.33 Obstructive sleep apnea (adult) (pediatric) (principal); E66.01 Morbid (severe) obesity due to excess calories; Z68.41 Body mass index [BMI] 40.0-44.9, adult
CPT/HCPCS: 99213; G0463; 99212

== ENCOUNTER 2021-02-02 12:25 | Emergency (ER) | payer MEDICARE, OTHER ==
--- NOTE | 2021-02-02 13:13 | XRAY Report ---
PROCEDURE: Tib/Fib RT INDICATIONS: Trauma TECHNIQUE: 2 views of the tibia and fibula were acquired. COMPARISON: Right lower extremity CT 02/18/2016 FINDINGS: Bones: No acute fractures or dislocations. No suspicious bony lesions. Soft tissues: Focal soft tissue edema is seen at the anterolateral aspect of the lower leg that may r epresent a soft tissue hematoma. IMPRESSION: 1. No acute osseous abnormality. If there is clinical concern or persistent symptoms, additional jeff ging such as repeat radiographs or advanced imaging (e.g. CT, MRI) may be helpful for further evaluat ion. 2. Focal soft tissue edema at the anterior lateral aspect of the lower leg may represent a hematoma or other soft tissue injury in the setting of trauma. Reviewed by: Juve Martinez MD on 02/02/2021 1:11 PM PDT Approved by: Juve Martinez MD on 02/02/2021 1:11 PM PDT Station ID: [id number]
--- NOTE | 2021-02-02 14:12 | ED Physician Documentation ---
PD HPI LOWER EXT INJURY - Stated complaint Stated Complaint: RT LEG PX - Chief complaint Chief Complaint: Ext Problem - History obtained from History obtained from: Patient - Additional information Additional information: Patient comes emergency department chief complaint of needs her right lower leg Rechecked. Patient states that 10 days ago she struck her leg while getting attempting to get down from a boat. She thinks she went down on a tackle box edge and states that she immediately developed a large hematoma. The patient is anticoagulated and had some expansion of the hematoma throughout the first day but then it stabilized. Patient also developed bruising around the area which gradually tracked down her leg to her ankle. She states that she still having some throbbing pain in the area but that actually, it seems that the hematoma size has decreased. She denies any pain in the calf muscle or increased swelling around her ankle. Patient states that she just wanted to check in with the nurse hotline to make sure that Her hematoma was progressing appropriately. The nurse told her to come to the emergency department to get her leg checked. Patient denies chest pain or shortness of breath. She states she is not noticed any redness of the area or forming of the tissue. She states that she otherwise has felt well. No other complaints at this time Review of Systems Ten Systems: 10 systems reviewed and negative Constitutional: reports: Reviewed and negative Eyes: reports: Reviewed and negative Ears: reports: Reviewed and negative Nose: reports: Reviewed and negative Throat: reports: Reviewed and negative Cardiac: reports: Reviewed and negative Respiratory: reports: Reviewed and negative GI: reports: Reviewed and negative : reports: Reviewed and negative Skin: reports: Reviewed and negative Musculoskeletal: reports: Extremity pain, Extremity swelling Neurologic: reports: Reviewed and negative Psychiatric: reports: Reviewed and negative Endocrine: reports: Reviewed and negative Immunocompromised: reports: Reviewed and negative PD PAST MEDICAL HISTORY - Past Medical History Cardiovascular: Hypertension, Atrial fibrillation Respiratory: Sleep apnea, CPAP use Neuro: None Endocrine/Autoimmune: None GI: GERD, C.difficile, Hemorrhoids, Crohn's disease, Other : None HEENT: None Psych: Depression Musculoskeletal: None Derm: None - Past Surgical History Past Surgical History: Yes General: Colonoscopy - Present Medications Home Medications: Ambulatory Orders Medication Instructions Recorded Confirmed Fluoxetine HCl [Prozac] 40 mg PO DAILY 10/21/16 04/27/18 Apixaban [Eliquis] 10 mg PO DAILY 04/27/18 04/27/18 Ascorbic Acid [Vitamin C] 1,000 mg PO DAILY 04/27/18 04/27/18 Multivitamin [Multiple Vitamins] 1 tab PO DAILY 04/27/18 04/27/18 azaTHIOprine [Azathioprine] 2 tab PO DAILY 04/27/18 04/27/18 lisinopriL [Lisinopril] 2 tab PO DAILY 04/27/18 04/27/18 Oxycodone HCl/Acetaminophen 1 - 2 each PO Q6H PRN #14 tablet 05/17/18 [Percocet 5-325 mg Tablet] predniSONE [Deltasone] 10 mg PO [id number] #42 tab 05/17/18 Ondansetron Odt [Zofran] 4 mg TL Q6H PRN #10 tablet 02/25/20 - Allergies Allergies/Adverse Reactions: Allergies Allergy/AdvReac Type Severity Reaction Status Date / Time No Known Drug Allergies Allergy Verified 02/02/21 12:39 - Social History Does the pt smoke?: No Smoking Status: Never smoker Does the pt drink ETOH?: No Does the pt have substance abuse?: No - Immunizations Immunizations are current?: Yes - POLST Patient has POLST: No PD ED PE NORMAL - Vitals Vital signs reviewed: Yes - General General: Alert and oriented X 3, No acute distress, Well developed/nourished - HEENT HEENT: Atraumatic, PERRL, EOMI, Moist mucous membranes - Neck Neck: Supple, no meningeal sign - Cardiac Cardiac: Strong equal pulses - Respiratory Respiratory: No respiratory distress - Derm Derm: Normal color, Warm and dry, No rash, Other (Extensive contusion over anterolateral and medial right lower leg. Fluctuance, large hematoma. Both contusion hematoma coloration appears old, with shades of yellow, green, sheth, and purple. No erythema or induration. No drainage.) - Extremities Extremities: No deformity, Other (Large, older appearing hematoma on the anterolateral aspect of the patient's mid right lower extremity. Hematoma area is fluctuant. No induration or erythema. No calf tenderness. No cords.) - Neuro Neuro: Alert and oriented X 3, phys asst 2-12 intact, Normal speech - Psych Psych: Normal mood, Normal affect Results - Vitals Vitals: Vital Signs - 24 hr 02/02/21 02/02/21 12:39 14:21 Temperature 36.5 C Heart Rate 73 77 Respiratory 18 16 Rate Blood Pressure 150/100 H 123/85 H O2 Saturation 98 99 Oxygen O2 Source Room air - Rads (name of study) Right tib-fib x-ray Radiology: Final report received, EMP read indepedently, See rad report (Soft tissue swelling, otherwise negative) PD MEDICAL DECISION MAKING - ED course Complexity details: reviewed results, re-evaluated patient, considered differential, d/w patient ED course: X-ray of the patient's leg was negative. I discussed with the patient that her hematoma appears appropriate for the age and that has gone through the appropriate progression of becoming firm and then liquefying again. There is no evidence of superinfection, continued bleeding, or DVT. We have discussed home management, the expected duration of symptoms, and the usual indications for return. Departure - Departure Disposition: 01 Home, Self Care Clinical Impression: Hematoma of right lower leg Condition: Stable Instructions: ED Hematoma Comments: The bruising and hematoma of your lower leg is following its natural progression. There is no evidence of ongoing bleeding, and there is no evidence of infection at this time. Please continue to prop your leg up and use ice packs if needed. You may also use Tylenol to help with the discomfort. You should continue to take your anticoagulation medication as directed. This is very unlikely to cause any further bleeding into the hematoma cavity, given the amount of time that has elapsed since your injury. If you begin to notice a deeper redness and firming of the skin, spreading progressively, you should have the hematoma rechecked. Discharge Date/Time: 02/02/21 14:22
[2021-02-02 14:22] VITALS: BP 123/85
== END 2021-02-02 14:22 | disposition home or self-care (01) ==
LOC: ED 12:25
DX: S80.11XD Contusion of right lower leg, subsequent encounter (principal); W22.09XD Striking against other stationary object, subsequent encounter
CPT/HCPCS: 99282; 99284

== ENCOUNTER 2021-07-08 08:00 | Outpatient (CLI) | payer MEDICARE, OTHER ==
[2021-07-08 18:05] LABS: ALBUMIN/GLOBULIN RATIO 1.1 (1.0-2.2); ALKALINE PHOSPHATASE 57 IU/L (42-121); ALT ALANINE AMINOTRANSFERASE 28 IU/L (10-60); AST ASPARTATE AMINOTRANSFERASE 25 IU/L (10-42); BILIRUBIN,TOTAL 0.5 mg/dL (0.2-1.0); BUN - BLOOD UREA NITROGEN 12 mg/dL (6-20); CALCIUM 9.3 mg/dL (8.5-10.3); CARBON DIOXIDE - CO2 25 mmol/L (21-32); CHLORIDE 104 mmol/L (101-111); CREATININE 0.8 mg/dL (0.4-1.0); GFR - MDRD 74 (>89); GLUCOSE 97 mg/dL (70-100); POTASSIUM 4.5 mmol/L (3.5-5.0); SODIUM 138 mmol/L (135-145); TOTAL PROTEIN 7.6 g/dL (6.7-8.2)
[2021-07-08 18:12] LABS: BASOPHILS % (AUTO) 0.5 %; EOSINOPHILS # (AUTO) 0.1 10^3/uL (0.0-0.7); EOSINOPHILS % (AUTO) 0.8 %; HCT - HEMATOCRIT 42.1 % (37.0-47.0); HGB - HEMOGLOBIN 13.4 g/dL (12.0-16.0); LYMPHOCYTES # (AUTO) 0.6 10^3/uL (1.5-3.5); LYMPHOCYTES % (AUTO) 9.4 %; MEAN CORPUSCULAR HEMOGLOBIN 30.7 pg (27.0-31.0); MEAN CORPUSCULAR HGB CONC 31.8 g/dL (32.0-36.0); MEAN CORPUSCULAR VOLUME 96.6 fL (81.0-99.0); MEAN PLATELET VOLUME 11.2 fL (7.9-10.8); MONOCYTES # (AUTO) 0.3 10^3/uL (0.0-1.0); MONOCYTES % (AUTO) 3.9 %; NEUTROPHILS # (AUTO) 5.7 10^3/uL (1.5-6.6); NEUTROPHILS % (AUTO) 85.2 %; PLT - PLATELET COUNT 242 10^3/uL (130-450); RED BLOOD COUNT 4.36 10^6/uL (4.20-5.40); RED CELL DISTRIBUTION WIDTH 13.4 % (12.0-15.0); WHITE BLOOD COUNT 6.6 x10^3/uL (4.8-10.8)
[2021-07-08 18:35] LABS: CRP - C-REACTIVE PROTEIN < 1.0 mg/dL (0-1.0)
== END 2021-07-08 23:59 ==
LOC: LAB.R 08:00
PROVIDERS: ATTEND Internal Medicine
DX: K50.90 Crohn's disease, unspecified, without complications (principal)
CPT/HCPCS: 80053; 85025; 86140

== ENCOUNTER 2021-10-28 13:23 | Emergency (ER) | payer OTHER ==
[~2021-10-28 13:23] MED LIST: HYDROmorphone 1 MG/ML CARPUJECT ONE; KETOROLAC 15 MG/ML VIAL ONE; ONDANSETRON 4 MG/2 ML VIAL ONE
[2021-10-28] MEDS ORDERED: metroNIDAZOLE 500 MG/100 ML 500 MG/100 ML BAG ONE (13:52)
[2021-10-28] MEDS ORDERED: CIPROFLOXACIN 400 MG/200 ML 400 MG/200 ML BAG IV ONE (13:53)
[2021-10-28 21:34] LABS: BASOPHILS % (AUTO) 0.4 %; EOSINOPHILS # (AUTO) 0.1 10^3/uL (0.0-0.7); EOSINOPHILS % (AUTO) 2.2 %; HCT - HEMATOCRIT 42.4 % (37.0-47.0); HGB - HEMOGLOBIN 13.6 g/dL (12.0-16.0); LYMPHOCYTES # (AUTO) 1.4 10^3/uL (1.5-3.5); LYMPHOCYTES % (AUTO) 27.9 %; MEAN CORPUSCULAR HEMOGLOBIN 30.8 pg (27.0-31.0); MEAN CORPUSCULAR HGB CONC 32.1 g/dL (32.0-36.0); MEAN CORPUSCULAR VOLUME 96.1 fL (81.0-99.0); MEAN PLATELET VOLUME 10.4 fL (7.9-10.8); MONOCYTES # (AUTO) 0.3 10^3/uL (0.0-1.0); MONOCYTES % (AUTO) 6.6 %; NEUTROPHILS # (AUTO) 3.1 10^3/uL (1.5-6.6); NEUTROPHILS % (AUTO) 62.7 %; PLT - PLATELET COUNT 258 10^3/uL (130-450); RED BLOOD COUNT 4.41 10^6/uL (4.20-5.40); RED CELL DISTRIBUTION WIDTH 13.5 % (12.0-15.0)
[2021-10-28 21:42] LABS: INR 1.2 (0.8-1.2); PT - PROTHROMBIN TIME 13.3 secs (9.9-12.6)
[2021-10-28 21:48] LABS: ALBUMIN 4.1 g/dL (3.2-5.5); BILIRUBIN,TOTAL 0.8 mg/dL (0.2-1.0); CALCIUM 9.6 mg/dL (8.5-10.3); CREATININE 0.8 mg/dL (0.4-1.0); POTASSIUM 3.8 mmol/L (3.5-5.0); TOTAL PROTEIN 8.4 g/dL (6.7-8.2)
[2021-10-28 21:49] LABS: BILIRUBIN,URINE NEGATIVE (NEGATIVE); CLARITY,URINE SL. CLOUDY (CLEAR); GLUCOSE, URINE (UA) NEGATIVE (NEGATIVE); HCG UR QUAL NEGATIVE; KETONES,URINE (UA) NEGATIVE (NEGATIVE); LEUKOCYTE ESTERASE, URINE MODERATE (NEGATIVE); NITRITE,URINE NEGATIVE (NEGATIVE); OCCULT BLOOD,URINE NEGATIVE (NEGATIVE); PH,URINE 7.5 PH (5.0-7.5); PROTEIN,URINE NEGATIVE (NEGATIVE); UROBILINOGEN,URINE 0.2 (NORMAL) E.U./dL (NORMAL)
[2021-10-28 21:50] LABS: BACTERIA,URINE Few /HPF (None Seen); RBC,URINE 0-5 /HPF (0-5); SQUAMOUS EPITHELIAL CELL,UR MOD Squamous (<= Few); WBC,URINE 0-3 /HPF (0-5)
--- NOTE | 2021-10-29 14:35 | CT Report ---
PROCEDURE: CT abdomen pelvis without contrast INDICATIONS: Abdomen Pain TECHNIQUE: Noncontrast 5 mm thick sections acquired from the diaphragms to the symphysis. 5 mm coronal and sagi ttal reformats were then performed. For radiation dose reduction, the following was used: automated exposure control, adjustment of mA and/or kV according to patient size. COMPARISON: 03/18/2018 FINDINGS: Lower thorax: The lung bases are clear. Heart size normal. No hiatal hernia. Liver: Normal in size and attenuation. No contour deformity present. Biliary system: No calcified cholelithiasis or pericholecystic inflammation. No evidence of bile du ct dilatation. Pancreas: Unremarkable without mass or inflammation evident. Spleen: Normal in size and density. Adrenals: Normal morphology and density. Reproductive system: Unremarkable as visualized. Urinary system: Normal renal size and attenuation. No renal calculi, hydronephrosis, or solid mass p resent. Urinary bladder unremarkable. Gastrointestinal system: Sigmoid diverticulosis noted. There is mild pericolonic inflammation noted i n the mid sigmoid on image 3/73. Fistulous communication between the sigmoid and cecum is again noted , and appears chronic. Presacral soft tissue thickening is also stable Appendix: No findings to suggest acute appendicitis. Peritoneal spaces: No mesenteric or retroperitoneal adenopathy. No free air. No free fluid. Vasculature: The IVC, aorta and iliac vasculature are unremarkable. Musculoskeletal: Normal bone mineralization. No acute fractures. Abdominal wall intact without korey dence of ventral or inguinal hernias. IMPRESSION: 1. Sigmoid diverticulosis with probable mild diverticulitis in the mid sigmoid. 2. Persistent but chronic appearing [id number] fistulous tracts, similar to the prior ex am Reviewed by: Sotero Murphy MD on 10/28/2021 11:22 AM AKDAVIS Approved by: Sotero Murphy MD on 10/28/2021 11:22 AM [place] Station ID: [id number]
--- NOTE | 2021-11-02 13:54 | ED Physician Documentation ---
History of Present Illness - Stated complaint Stated Complaint: ABD PX - Chief complaint Chief Complaint: General - History obtained from History obtained from: Patient - Additonal information Additional information: abdominal pain 4 days PD PAST MEDICAL HISTORY - Past Medical History Cardiovascular: Hypertension, Atrial fibrillation Respiratory: Sleep apnea, CPAP use Neuro: None Endocrine/Autoimmune: None GI: GERD, C.difficile, Hemorrhoids, Crohn's disease, Other : None HEENT: None Psych: Depression Musculoskeletal: None Derm: None - Past Surgical History Past Surgical History: Yes General: Colonoscopy - Present Medications Home Medications: Ambulatory Orders Medication Instructions Recorded Confirmed Fluoxetine HCl [Prozac] 40 mg PO DAILY 10/21/16 04/27/18 Apixaban [Eliquis] 10 mg PO DAILY 04/27/18 04/27/18 Ascorbic Acid [Vitamin C] 1,000 mg PO DAILY 04/27/18 04/27/18 Multivitamin [Multiple Vitamins] 1 tab PO DAILY 04/27/18 04/27/18 azaTHIOprine [Azathioprine] 2 tab PO DAILY 04/27/18 04/27/18 lisinopriL [Lisinopril] 2 tab PO DAILY 04/27/18 04/27/18 Oxycodone HCl/Acetaminophen 1 - 2 each PO Q6H PRN #14 tablet 05/17/18 [Percocet 5-325 mg Tablet] predniSONE [Deltasone] 10 mg PO [id number] #42 tab 05/17/18 Ondansetron Odt [Zofran] 4 mg TL Q6H PRN #10 tablet 02/25/20 - Allergies Allergies/Adverse Reactions: Allergies Allergy/AdvReac Type Severity Reaction Status Date / Time No Known Drug Allergies Allergy Verified 02/02/21 12:39 - Social History Does the pt smoke?: No Smoking Status: Never smoker Does the pt drink ETOH?: No Does the pt have substance abuse?: No - Immunizations Immunizations are current?: Yes - POLST Patient has POLST: No PD ED PE NORMAL - Vitals Vital signs reviewed: Yes - General General: No acute distress, Well developed/nourished - HEENT HEENT: Atraumatic, PERRL, EOMI - Cardiac Cardiac: RRR, No murmur - Respiratory Respiratory: No respiratory distress, Clear bilaterally - Abdomen Abdomen: Soft, Other (mild suprapubic and LLQ pain to palpation) - Derm Derm: Normal color, Warm and dry, No rash - Extremities Extremities: No deformity, No edema - Neuro Neuro: Alert and oriented X 3, lacemaker 2-12 intact, No motor deficit, No sensory deficit, Normal speech Eye Opening: Spontaneous Motor: Obeys Commands Verbal: Oriented GCS Score: 15 - Psych Psych: Normal mood, Normal affect Results - Vitals Vitals: Oxygen O2 Source Room air - Labs Labs: Microbiology 10/28/21 10:36 Blood Culture - Preliminary Blood - Left Hand NO GROWTH AFTER 2 DAYS 10/28/21 10:10 Blood Culture - Preliminary Blood - Right Arm NO GROWTH AFTER 2 DAYS Laboratory Tests 10/28/21 10/28/21 10/28/21 10:10 10:10 10:10 WBC 5.0 RBC 4.41 Hgb 13.6 Hct 42.4 MCV 96.1 MCH 30.8 MCHC 32.1 RDW 13.5 Plt Count 258 MPV 10.4 Neut # (Auto) 3.1 Lymph # (Auto) 1.4 L Levy # (Auto) 0.3 Eos # (Auto) 0.1 Baso # (Auto) 0.0 Absolute Nucleated RBC 0.00 Nucleated RBC % 0.0 PT INR Sodium 141 Potassium 3.8 Chloride 105 Carbon Dioxide 26 Anion Gap 10.0 BUN 13 Creatinine 0.8 Estimated GFR (MDRD) 74 L Glucose 98 Lactic Acid Calcium 9.6 Total Bilirubin 0.8 AST 26 ALT 29 Alkaline Phosphatase 57 Troponin I High Sens 3.9 Total Protein 8.4 H Albumin 4.1 Globulin 4.3 H Albumin/Globulin Ratio 1.0 Lipase 32 Urine Color Urine Clarity Urine pH Ur Specific Eads Urine Protein Urine Glucose (UA) Urine Ketones Urine Occult Blood Urine Nitrite Urine Bilirubin Urine Urobilinogen Ur Leukocyte Esterase Urine RBC Urine WBC Ur Squamous Epith Cells Urine Bacteria Ur Microscopic Review Urine Culture Comments Urine HCG, Qual 10/28/21 10/28/21 10/28/21 10:10 10:10 10:47 WBC RBC Hgb Hct MCV MCH MCHC RDW Plt Count MPV Neut # (Auto) Lymph # (Auto) Levy # (Auto) Eos # (Auto) Baso # (Auto) Absolute Nucleated RBC Nucleated RBC % PT 13.3 H INR 1.2 Sodium Potassium Chloride Carbon Dioxide Anion Gap BUN Creatinine Estimated GFR (MDRD) Glucose Lactic Acid 1.4 Calcium Total Bilirubin AST ALT Alkaline Phosphatase Troponin I High Sens Total Protein Albumin Globulin Albumin/Globulin Ratio Lipase Urine Color YELLOW Urine Clarity SL. CLOUDY Urine pH 7.5 Ur Specific Eads 1.015 Urine Protein NEGATIVE Urine Glucose (UA) NEGATIVE Urine Ketones NEGATIVE Urine Occult Blood NEGATIVE Urine Nitrite NEGATIVE Urine Bilirubin NEGATIVE Urine Urobilinogen 0.2 (NORMAL) Ur Leukocyte Esterase MODERATE H Urine RBC 0-5 Urine WBC 0-3 Ur Squamous Epith Cells MOD Squamous H Urine Bacteria Few Ur Microscopic Review INDICATED Urine Culture Comments NOT INDICATED Urine HCG, Qual NEGATIVE - Rads (name of study) CT ab/pel Radiology: Prelim report reviewed (Impression: Sigmoid diverticulosis with probable mild diverticulitis in the mid sigmoid. Persistent but chronic appearing sigmoid cecal presacral fistulous tracts, similar to prior exam.), EMP read indepedently, See rad report PD MEDICAL DECISION MAKING - ED course Complexity details: reviewed results, re-evaluated patient, considered differential, d/w patient ED course: 56-year-old female with 4 days of symptoms has appearance of diverticulitis on CT scan she has had prior episodes and has known fistula formation. A course of antibiotic is indicated for this patient Departure - Departure Disposition: 01 Home, Self Care Discharge Date/Time: 10/29/21 11:41
== END 2021-10-29 11:41 | disposition home or self-care (01) ==
LOC: ED 13:23
DX: K57.30 Diverticulosis of large intestine without perforation or abscess without bleeding (principal); I10 Essential (primary) hypertension; I48.91 Unspecified atrial fibrillation; Z79.01 Long term (current) use of anticoagulants
CPT/HCPCS: 36415; 74176; 80053; 81001; 81025; 83605; 83690; 84484; 85025; 85610; 87040; 96374; 96375; 99284; J1170; 81003; 87086

== ENCOUNTER 2022-02-03 12:22 | Outpatient (CLI) | payer OTHER ==
[2022-02-03 12:32] LABS: BASOPHILS % (AUTO) 0.5 %; EOSINOPHILS # (AUTO) 0.1 10^3/uL (0.0-0.7); EOSINOPHILS % (AUTO) 1.8 %; HGB - HEMOGLOBIN 14.4 g/dL (12.0-16.0); LYMPHOCYTES # (AUTO) 1.4 10^3/uL (1.5-3.5); LYMPHOCYTES % (AUTO) 21.7 %; MEAN CORPUSCULAR HEMOGLOBIN 30.8 pg (27.0-31.0); MEAN CORPUSCULAR HGB CONC 32.7 g/dL (32.0-36.0); MEAN PLATELET VOLUME 11.2 fL (7.9-10.8); MONOCYTES # (AUTO) 0.4 10^3/uL (0.0-1.0); MONOCYTES % (AUTO) 6.4 %; NEUTROPHILS # (AUTO) 4.4 10^3/uL (1.5-6.6); NEUTROPHILS % (AUTO) 69.4 %; PLT - PLATELET COUNT 285 10^3/uL (130-450); RED BLOOD COUNT 4.68 10^6/uL (4.20-5.40); RED CELL DISTRIBUTION WIDTH 13.6 % (12.0-15.0); WHITE BLOOD COUNT 6.3 x10^3/uL (4.8-10.8)
[2022-02-03 12:53] LABS: ALBUMIN 4.3 g/dL (3.2-5.5); ALBUMIN/GLOBULIN RATIO 1.2 (1.0-2.2); ALKALINE PHOSPHATASE 60 IU/L (42-121); ALT ALANINE AMINOTRANSFERASE 28 IU/L (10-60); AST ASPARTATE AMINOTRANSFERASE 26 IU/L (10-42); BILIRUBIN,TOTAL 0.6 mg/dL (0.2-1.0); BUN - BLOOD UREA NITROGEN 11 mg/dL (6-20); CALCIUM 9.6 mg/dL (8.5-10.3); CARBON DIOXIDE - CO2 23 mmol/L (21-32); CHLORIDE 103 mmol/L (101-111); CREATININE 0.9 mg/dL (0.4-1.0); GFR - MDRD 64 (>89); GLUCOSE 117 mg/dL (70-100); POTASSIUM 4.2 mmol/L (3.5-5.0); SODIUM 137 mmol/L (135-145)
[2022-02-03 13:14] LABS: CRP - C-REACTIVE PROTEIN < 1.0 mg/dL (0-1.0)
== END 2022-02-03 12:23 | disposition home or self-care (01) ==
LOC: LAB.R 12:22
PROVIDERS: ATTEND Internal Medicine
DX: K50.80 Crohn's disease of both small and large intestine without complications (principal); K63.2 Fistula of intestine
CPT/HCPCS: 80053; 85025; 85651; 86140

== ENCOUNTER 2022-02-19 10:12 | Outpatient (CLI) | payer OTHER ==
[2022-02-19 11:18] VITALS: BP 128/88
--- NOTE | 2022-02-19 11:18 | SLEEP CARE CONSULTATION ---
Information from patient questionnaire entered by Rhonda Deleon. I have reviewed and concur with the information entered by Rhonda Deleon. This document represents the service I personally performed and the decisions made by me, Pat Gaines ARNP. History of Present Illness Service Date and Time: 02/19/2022 1012 Previous diagnosis: Very Severe, Obstructive Sleep Apnea-Hypopnea Syndrome AHI: 69.0 (in 2008) Reason for follow up: annual (LAST SEEN 12/2020) Equipment type: CPAP (DREAMSTATION 2) Equipment obtained from: [employer] (getting supplies as needed) Mask style: Nasal Backup mask available: Yes (old mask) Last cushion change: 3 weeks ago [facility] Type of Sleep Study: Pol[facility]nography HPI additional information: NICK URIAS was diagnosed to have very severe, AHI 69.0, obstructive sleep apnea-hypopnea syndrome and returned today for CPAP therapy annual follow-up. Sleep Study - Results Type of Sleep Study: Polysomnography Prior [facility]: Yes [facility] Compliance Data - Data Reviewed with Patient Average duration of nightly device use: 11 hours, 20 minutes, 14 seconds Compliance rate %: 99.4 (08/21/21 to 02/16/22; 179/180 days used) Current pressure setting (cmH2O): 10-12 Average residual AHI: 5.4 Average large leak: 35 secs Subjective Patient concerns: reports: dry mouth, nose, throat, other (headaches, occasional but may be related to other health issues). denies: aerophagia, mask discomfort, air blowing in eyes, mask leak noise, condensation in mask/hose, nasal congestion, epistaxis Observed to snore while using device: No Current pressure setting perceived as: comfortable On therapy, patient: reports: sleeping better, awakening more refreshed, being more awake and alert during the day, more rested overall. denies: drowsiness while driving Initial [place] Sleepiness Scale score: 3 (in 2008) Current [place] Sleepiness Scale score: 8 (02/19/22) Allergies and Home Medications Drug allergies reviewed: Yes (NKDA) Home medication list reviewed: Yes (Amoxicillin 500 mg) Allergy and home medication list: Allergies No Known Drug Allergies Allergy (Verified 02/02/21 12:39) Review of Systems Review of systems same as previous: Yes (no changes; had root canal on Tues) Physical Exam Vital signs obtained and entered by: SAEID DAVIS Blood Pressure: 128/88 (left arm ) Heart Rate: 86 O2 Saturation: 97 Height: 5 ft 5.5 in Weight: 248 lb Body Mass Index: 40.6 BMI Classification: Morbidly Obese Impression and Plan 1. Obstructive Sleep Apnea-Hypopnea Syndrome, very severe, with excellent treatment compliance and good apnea control with minimal elevation of residual AHI. On CPAP therapy, the patient has better sleep quality and is more rested overall. Patient has significant improvement of their sleep apnea and are satisfied with current CPAP therapy. Patient denies problems with oral dryness, nasal congestion, epistaxis, skin irritation or aerophagia. Patient's apnea severity and rationale for treatment to reduce apnea, improve sleep quality and reduce cardiovascular and cerebrovascular events was reviewed. I also reviewed the benefit of consistent device use of CPAP for hypertension and depression. Patient does have question about Inspire therapy. She states she tolerates her CPAP but does not really like the whole process of using a CPAP. Patient would like to explore option of implantable Inspire device. I will make a referral and she will follow up there. She will let me know of any changes to therapy. 2. Obesity, unspecified. Currently patients BMI is 40.6. Obesity increases the risk of apnea, CPAP pressure requirements and overall health risks especially cardiovascular and diabetes. Thus patient is advised to lose weight. Weight loss can be done with reducing portion size, reducing refined foods and balancing content with vegetables, fruit and whole grain foods. In addition, patient encouraged to get regular exercise. * Continue auto CPAP pressure at 10-12 cmH2O * Update supplies * Referral for Inspire Implant evaluation * Notify me if snoring with mask or feeling that the pressure is too much or too little * Attempt to lose weight * Call this office if any problems using CPAP * Return for follow up in 1 year, or sooner if concerns arise Counseling Topics: Spare mask, Weight loss health impact Visit Type: In Office Time Spent with Patient (minutes): 20 Provider Statement: I spent 100% of the Face to Face Visit with the patient with greater than 50% spent counseling the patient and coordination of care.
== END 2022-02-19 10:13 | disposition home or self-care (01) ==
LOC: SC 10:12
PROVIDERS: ATTEND Nurse Practitioner Family
DX: G47.33 Obstructive sleep apnea (adult) (pediatric) (principal); E66.01 Morbid (severe) obesity due to excess calories; Z68.41 Body mass index [BMI] 40.0-44.9, adult
CPT/HCPCS: 99212; 99213

== ENCOUNTER 2023-02-02 15:58 | Outpatient (CLI) | payer MEDICARE, OTHER ==
--- NOTE | 2023-02-02 16:29 | Sleep Patient Instructions ---
Sleep Center Visit Summary - Patient Visit Information Reason for Visit: Annual visit for PAP therapy - Patient Instructions Additional Instructions: You will continue with CPAP therapy with pressure set at 10-12 cmH2O. A supply prescription will be updated with your DME. We encourage you to continue to try to lose weight. Please follow up with the sleep care office in 1 year. - Clinic Information Contact: [facility] [address] [place] [address] [email or web address] T: [phone]
--- NOTE | 2023-02-02 16:33 | SLEEP CARE CONSULTATION ---
Information from patient questionnaire entered by Amairani Blandon. I have reviewed and concur with the information entered by Amairani Blandon. This document represents the service I personally performed and the decisions made by me, Pat Gaines ARNP. History of Present Illness Service Date and Time: 02/02/2023 1558 Previous diagnosis: Very Severe, Obstructive Sleep Apnea-Hypopnea Syndrome AHI: 69 (in 2008) Reason for follow up: annual (LAST SEEN 01/2022) Equipment type: CPAP (DREAMSTATION 2) Equipment obtained from: [employer] (getting supplies as needed) Mask style: Nasal Backup mask available: Yes (old mask) Last cushion change: every two weeks [facility] Type of Sleep Study: Pol[facility] HPI additional information: NICK URIAS was diagnosed to have very severe, AHI 69, obstructive sleep apnea- hypopnea syndrome and returned today for CPAP therapy annual follow-up. Sleep Study - Results Type of Sleep Study: Polysomnography Prior sleep studies: Yes Year and Where: 2008 - [facility] Sleep CPAP Compliance Data - Data Reviewed with Patient Average duration of nightly device use: 10 hours 57 minutes Compliance rate %: 100 (08/04/22-01/30/23; 180/180 days) Current pressure setting (cmH2O): 10-12 Average residual AHI: 4.9 Central apnea: 0.5 Obstructive apnea: 2.2 Hypopnea: 2.2 Average large leak: 28 secs Subjective Patient concerns: denies: aerophagia, mask discomfort, air blowing in eyes, mask leak noise, condensation in mask/hose, nasal congestion, dry mouth, nose, throat, epistaxis Observed to snore while using device: No Current pressure setting perceived as: comfortable On therapy, patient: reports: sleeping better, awakening more refreshed, being more awake and alert during the day, more rested overall. denies: drowsiness while driving Initial [place] Sleepiness Scale score: 3 (in 2008) Current [place] Sleepiness Scale score: 0 (02/02/23) Allergies and Home Medications Known drug allergies: No Drug allergies reviewed: Yes Home medication list reviewed: Yes (no changes) Allergy and home medication list: Allergies No Known Drug Allergies Allergy (Verified 02/01/23 14:26) Review of Systems Review of systems same as previous: Yes (no changes) Physical Exam Vital signs obtained and entered by: AMAIRANI Murphy MA Blood Pressure: 149/84 (RIGHT) Cuff size: wrist Heart Rate: 69 O2 Saturation: 98 Height: 5 ft 5.5 in Weight: 253 lb Weight change since last visit: 5 lb gain Body Mass Index: 41.4 BMI Classification: Morbidly Obese Impression and Plan 1. Obstructive Sleep Apnea-Hypopnea Syndrome, very severe, with good treatment c ompliance and good apnea control. On CPAP therapy, the patient has better sleep quality and is more rested overall. Patient states she never heard from the people she was referred to for the Inspire Implant therapy. I offered to send another referral but she wanted to wait at this time. Patient has significant improvement of their sleep apnea and is satisfied with current CPAP therapy. Patient denies problems with oral dryness, nasal congestion, epistaxis, skin irritation or aerophagia. Patient's apnea severity and rationale for treatment to reduce apnea, improve sleep quality and reduce cardiovascular and cerebrovascular events was reviewed. I also reviewed the benefit of consistent device use of CPAP for hypertension and depression. 2. Obesity, unspecified. Currently patients BMI is 41.4. She is wanting to lose weight. Obesity increases the risk of apnea, CPAP pressure requirements and overall health risks especially cardiovascular and diabetes. Thus patient is advised to continue to try to lose weight. * Continue auto CPAP pressure at 10-12 cmH2O * Update supplies * Notify me if snoring with mask or feeling that the pressure is too much or too little * Attempt to lose weight * Call this office if any problems using CPAP * Return for follow up in 1 year, or sooner if concerns arise Counseling Topics: Spare mask, Weight loss health impact Prescriptions: Device supplies Visit Type: In Office Time Spent with Patient (minutes): 20 Provider Statement: I spent 100% of the Face to Face Visit with the patient with greater than 50% spent counseling the patient and coordination of care.
[2023-02-02 16:38] VITALS: BP 149/84; O2SAT 98
== END 2023-02-02 15:59 | disposition home or self-care (01) ==
LOC: SC 15:58
PROVIDERS: ATTEND Nurse Practitioner Family
DX: G47.33 Obstructive sleep apnea (adult) (pediatric) (principal); E66.01 Morbid (severe) obesity due to excess calories; Z68.41 Body mass index [BMI] 40.0-44.9, adult
CPT/HCPCS: 99213; G0463; 99212

== ENCOUNTER 2023-10-12 08:00 | Outpatient (CLI) | payer MEDICARE, OTHER ==
[2023-10-12 19:15] LABS: BASOPHILS % (AUTO) 0.3 %; EOSINOPHILS % (AUTO) 0.3 %; HCT - HEMATOCRIT 41.1 % (37.0-47.0); HGB - HEMOGLOBIN 13.5 g/dL (12.0-16.0); LYMPHOCYTES % (AUTO) 14.4 %; MEAN CORPUSCULAR HEMOGLOBIN 29.6 pg (27.0-31.0); MEAN CORPUSCULAR HGB CONC 32.8 g/dL (32.0-36.0); MEAN CORPUSCULAR VOLUME 90.1 fL (81.0-99.0); MEAN PLATELET VOLUME 10.7 fL (7.9-10.8); MONOCYTES # (AUTO) 0.2 10^3/uL (0.0-1.0); MONOCYTES % (AUTO) 2.6 %; NEUTROPHILS # (AUTO) 5.5 10^3/uL (1.5-6.6); NEUTROPHILS % (AUTO) 82.2 %; PLT - PLATELET COUNT 223 10^3/uL (130-450); RED BLOOD COUNT 4.56 10^6/uL (4.20-5.40); RED CELL DISTRIBUTION WIDTH 12.6 % (12.0-15.0); WHITE BLOOD COUNT 6.6 x10^3/uL (4.8-10.8)
[2023-10-12 19:46] LABS: ALBUMIN 4.4 g/dL (3.2-5.5); ALBUMIN/GLOBULIN RATIO 1.4 (1.0-2.2); ALKALINE PHOSPHATASE 79 IU/L (42-121); ALT ALANINE AMINOTRANSFERASE 27 IU/L (10-60); AST ASPARTATE AMINOTRANSFERASE 22 IU/L (10-42); BILIRUBIN,TOTAL 0.5 mg/dL (0.2-1.0); BUN - BLOOD UREA NITROGEN 14 mg/dL (6-20); CARBON DIOXIDE - CO2 24 mmol/L (21-32); CHLORIDE 106 mmol/L (101-111); CREATININE 0.9 mg/dL (0.6-1.3); CRP - C-REACTIVE PROTEIN < 0.5 mg/dL (<0.5); GFR - MDRD 64 (>89); GLUCOSE 128 mg/dL (74-104); POTASSIUM 4.2 mmol/L (3.5-4.5); SODIUM 138 mmol/L (135-145); TOTAL PROTEIN 7.6 g/dL (6.4-8.9)
== END 2023-10-12 23:59 | disposition home or self-care (01) ==
LOC: LAB.R 08:00
PROVIDERS: ATTEND Internal Medicine Gastroenterology
DX: K50.80 Crohn's disease of both small and large intestine without complications (principal)
CPT/HCPCS: 80053; 85025; 85651; 86140

== ENCOUNTER 2023-12-30 11:25 | Emergency (ER) | payer MEDICARE, OTHER ==
[2023-12-30 12:13] LABS: BILIRUBIN,URINE NEGATIVE (NEGATIVE); CLARITY,URINE CLEAR (CLEAR); GLUCOSE, URINE (UA) NEGATIVE (NEGATIVE); KETONES,URINE (UA) NEGATIVE (NEGATIVE); LEUKOCYTE ESTERASE, URINE SMALL (NEGATIVE); NITRITE,URINE NEGATIVE (NEGATIVE); OCCULT BLOOD,URINE NEGATIVE (NEGATIVE); PROTEIN,URINE 30 mg/dL (NEGATIVE); UROBILINOGEN,URINE 1 (NORMAL) E.U./dL (NORMAL)
[2023-12-30 12:19] LABS: BACTERIA,URINE Few /HPF (None Seen); CASTS, URINE 0-2 Hyaline Casts /LPF; MUCUS,URINE Few Strands; RBC,URINE 0-5 /HPF (0-5); SQUAMOUS EPITHELIAL CELL,UR MOD Squamous (<= Few)
--- NOTE | 2023-12-30 12:22 | ED Physician Documentation ---
History of Present Illness - Stated complaint Stated Complaint: - Chief complaint Chief Complaint: UTI - History of Present Illness Timing: Prior to arrival - Additonal information Additional information: Patient is a 58-year-old female presenting to the emergency department with urinary symptoms. Patient states last Friday 12/22 she was having burning with urination and pressure with urination. She went to her primary care doctor who diagnosed her with a UTI started her on Macrobid. She took these for 5 days but on Tuesday began to develop symptoms again. She followed up with her PCP tamanna small given persistent symptoms and her history of being immunocompromised, she is on Remicade for history of Crohn's. He recommended she come to emergency department for concerns of possible pyelonephritis given persistent symptoms. Patient reports pain is in her lower abdomen and in her back. She reports frequency of urination hesitancy and burning with urination. She denies any fevers chills nausea or vomiting. PD PAST MEDICAL HISTORY - Past Medical History Cardiovascular: Hypertension, Atrial fibrillation Respiratory: Sleep apnea, CPAP use Neuro: None Endocrine/Autoimmune: None GI: GERD, C.difficile, Hemorrhoids, Crohn's disease, Other : None HEENT: None Psych: Depression Musculoskeletal: None Derm: None - Past Surgical History Past Surgical History: Yes General: Colonoscopy - Present Medications Home Medications: Ambulatory Orders Medication Instructions Recorded Confirmed Fluoxetine HCl [Prozac] 40 mg PO DAILY 10/21/16 02/02/23 Ascorbic Acid [Vitamin C] 1,000 mg PO DAILY 04/27/18 02/02/23 Multivitamin [Multiple Vitamins] 1 tab PO DAILY 04/27/18 02/02/23 azaTHIOprine [Azathioprine] 2 tab PO DAILY 04/27/18 02/02/23 lisinopriL [Lisinopril] 2 tab PO DAILY 04/27/18 02/02/23 Oxycodone HCl/Acetaminophen 1 - 2 each PO Q6H PRN #14 tablet 05/17/18 02/02/23 [Percocet 5-325 mg Tablet] predniSONE [Deltasone] 10 mg PO [id number] #42 tab 05/17/18 02/02/23 Ondansetron Odt [Zofran] 4 mg TL Q6H PRN #10 tablet 02/25/20 02/02/23 Cefdinir 300 mg PO BID #20 cap 12/30/23 Phenazopyridine/Urine Uti Strp 99.5 mg MC TID 3 Days #9 packet 12/30/23 [Uristat Ultra 99.5 mg Uti Artem] - Allergies Allergies/Adverse Reactions: Allergies Allergy/AdvReac Type Severity Reaction Status Date / Time No Known Drug Allergies Allergy Verified 12/30/23 11:41 - Social History Does the pt smoke?: No Smoking Status: Never smoker Does the pt drink ETOH?: No Does the pt have substance abuse?: No - Immunizations Immunizations are current?: Yes - POLST Patient has POLST: No PD ED PE NORMAL - Vitals Vital signs reviewed: Yes - General General: Alert and oriented X 3 - HEENT HEENT: Atraumatic - Neck Neck: Supple, no meningeal sign - Cardiac Cardiac: RRR, No murmur, No gallop, No rub - Respiratory Respiratory: No respiratory distress, Clear bilaterally - Abdomen Abdomen: Normal bowel sounds, Non tender, Non distended, Other (Bilateral CVA tenderness on examination ) - Female Female : Deferred - Rectal Rectal: Deferred - Derm Derm: Normal color, Warm and dry, No rash - Extremities Extremities: No deformity - Neuro Neuro: Alert and oriented X 3 Results - Vitals Vitals: Vital Signs - 24 hr 12/30/23 12/30/23 11:30 13:28 Temperature 36.9 C Heart Rate 72 68 Respiratory 20 18 Rate Blood Pressure 133/79 H 137/77 H O2 Saturation 98 98 Oxygen O2 Source Room air - Labs Labs: Laboratory Tests 12/30/23 12/30/23 12/30/23 11:59 12:26 12:26 WBC 7.6 RBC 4.69 Hgb 13.6 Hct 43.8 MCV 93.4 MCH 29.0 MCHC 31.1 L RDW 12.9 Plt Count 247 MPV 10.3 Neut # (Auto) 5.0 Lymph # (Auto) 1.9 [place] # (Auto) 0.7 Eos # (Auto) 0.1 Baso # (Auto) 0.0 Absolute Nucleated RBC 0.00 Nucleated RBC % 0.0 Sodium 139 Potassium 4.2 Chloride 105 Carbon Dioxide 28 Anion Gap 6.0 BUN 12 Creatinine 0.8 Estimated GFR (MDRD) 73 L Glucose 92 Calcium 10.0 Total Bilirubin 0.5 AST 21 ALT 26 Alkaline Phosphatase 81 Total Protein 8.1 Albumin 4.4 Globulin 3.7 Albumin/Globulin Ratio 1.2 Urine Color YELLOW Urine Clarity CLEAR Urine pH 6.0 Ur Specific [place] 1.025 Urine Protein 30 H Urine Glucose (UA) NEGATIVE Urine Ketones NEGATIVE Urine Occult Blood NEGATIVE Urine Nitrite NEGATIVE Urine Bilirubin NEGATIVE Urine Urobilinogen 1 (NORMAL) Ur Leukocyte Esterase SMALL H Urine RBC 0-5 Urine WBC 6-10 H Ur Squamous Epith Cells MOD Squamous H Urine Bacteria Few Urine Casts 0-2 Hyaline Casts Urine Mucus Few Strands Ur Microscopic Review INDICATED Urine Culture Comments NOT INDICATED PD Medical Decision Making - ED course Complexity details: reviewed old records, reviewed results ED course: Patient is a 58-year-old female presenting to the emergency department with symptoms of burning hesitancy frequency of urination. Symptoms started last Tuesday she was diagnosed by her PCP with a UTI and started on Macrobid. Patient's symptoms restarted after finishing antibiotics on 12/27. Patient followed up with her PCP today who sent her to the emergency department for persistent symptoms. She notes pain now radiates to her lower back no CVA tenderness. She denies any fevers or chills associated with her symptoms. Vitals are stable on arrival patient is afebrile nontachycardic. Bilateral CVA tenderness on examination. Bladder scan performed here in the emergency department shows no acute urinary retention retained 7 cc on postvoid residual. Urine analysis shows 6-10 white blood cells there is moderate amount of squamous cells and no urine culture was ran due to moderate amount of squamous cells there additionally is no signs of blood or red blood cells in the urine. Patient updated on reassuring findings. Will cover for possible pyelonephritis as there is 6-10 white blood cells and patient is symptomatic. Will give short course of Azo as well for urinary symptoms control. Patient's basic labs were obtained no significant leukocytosis hemoglobin is stable additionally creatinine at's 0.8 however this is stable in no acute change from previous creatinine levels. Discussed with patient symptoms most likely secondary to pyelonephritis will give short course of cefdinir patient's previous antibiotics may have not been susceptible to the culture however unable to review culture results as these were performed by her PCP. Additionally discussed with patient Macrobid does not cover for pyelonephritis and this could explain why her symptoms have been persistent. Patient understands and is agreeable with strict return precautions. Departure - Departure Disposition: 01 Home, Self Care Clinical Impression: Urinary tract infection, Pyelonephritis Condition: Good Instructions: Pyelonephritis Dc, Urinary Tract Infecs Women Comments: You were seen here in the emergency department for your urinary symptoms. Your workup here in the emergency department was reassuring I have started you on a new dose of antibiotics and a medication called Azo that will help with your urinary symptoms. Please take these prescriptions as prescribed as this will treat for a kidney infection as well. If you develop any worsening pain fevers difficulty urinating or blood in your urine you should return to the emergency department immediately. Follow-up with your PCP in about 1 week to ensure resolution of symptoms. Forms: PCP List
[2023-12-30 12:30] LABS: BASOPHILS % (AUTO) 0.3 %; EOSINOPHILS # (AUTO) 0.1 10^3/uL (0.0-0.7); EOSINOPHILS % (AUTO) 0.8 %; HCT - HEMATOCRIT 43.8 % (37.0-47.0); HGB - HEMOGLOBIN 13.6 g/dL (12.0-16.0); LYMPHOCYTES # (AUTO) 1.9 10^3/uL (1.5-3.5); LYMPHOCYTES % (AUTO) 24.9 %; MEAN CORPUSCULAR HGB CONC 31.1 g/dL (32.0-36.0); MEAN CORPUSCULAR VOLUME 93.4 fL (81.0-99.0); MEAN PLATELET VOLUME 10.3 fL (7.9-10.8); MONOCYTES # (AUTO) 0.7 10^3/uL (0.0-1.0); MONOCYTES % (AUTO) 8.5 %; NEUTROPHILS % (AUTO) 65.4 %; PLT - PLATELET COUNT 247 10^3/uL (130-450); RED BLOOD COUNT 4.69 10^6/uL (4.20-5.40); RED CELL DISTRIBUTION WIDTH 12.9 % (12.0-15.0); WHITE BLOOD COUNT 7.6 x10^3/uL (4.8-10.8)
[2023-12-30 12:43] LABS: ALBUMIN 4.4 g/dL (3.2-5.5); ALBUMIN/GLOBULIN RATIO 1.2 (1.0-2.2); BILIRUBIN,TOTAL 0.5 mg/dL (0.2-1.0); CREATININE 0.8 mg/dL (0.6-1.3); POTASSIUM 4.2 mmol/L (3.5-4.5); TOTAL PROTEIN 8.1 g/dL (6.4-8.9)
[2023-12-30 13:40] VITALS: BP 137/77
[2023-12-30 14:13] VITALS: O2SAT 97
== END 2023-12-30 14:11 | disposition home or self-care (01) ==
LOC: ED 11:25
DX: N12 Tubulo-interstitial nephritis, not specified as acute or chronic (principal); I10 Essential (primary) hypertension; I48.91 Unspecified atrial fibrillation; Z79.899 Other long term (current) drug therapy; Z87.440 Personal history of urinary (tract) infections
CPT/HCPCS: 36415; 80053; 81001; 81003; 85025; 87086; 99282; 99283

== ENCOUNTER 2024-02-03 10:37 | Outpatient (CLI) | payer MEDICARE, OTHER ==
--- NOTE | 2024-02-03 11:05 | Sleep Patient Instructions ---
Sleep Center Visit Summary - Patient Visit Information Reason for Visit: Annual follow-up - Patient Instructions Additional Instructions: You will continue with CPAP therapy with pressure set at 10-12 cmH2O. A supply prescription will be updated with your DME supplier. We encourage you to continue to try to lose weight. Please follow up with the sleep care office in 1 year. - Clinic Information Contact: [facility] [address] [place] [address] [email or web address] T: [phone]
--- NOTE | 2024-02-03 11:09 | SLEEP CARE CONSULTATION ---
Information from patient questionnaire entered by Amairani Blandon. I have reviewed and concur with the information entered by Amairani Blandon. This document represents the service I personally performed and the decisions made by me, Pat Gaines ARNP. History of Present Illness Service Date and Time: 02/03/2024 1037 Previous diagnosis: Very Severe, Obstructive Sleep Apnea-Hypopnea Syndrome AHI: 69 (in 2008) Reason for follow up: annual (LAST SEEN 01/2023) Equipment type: CPAP (DREAMSTATION 2) Equipment obtained from: [email or web address] (getting supplies as needed) Mask style: Nasal (medium cushion) Backup mask available: No Last cushion change: last month [facility] Type of Sleep Study: Polysomnography HPI additional information: NICK URIAS was diagnosed to have very severe, AHI 69, obstructive sleep apnea- hypopnea syndrome and returned today for CPAP therapy annual follow-up. Sleep Study - Results Type of Sleep Study: Polysomnography Prior sleep studies: Yes Year and Where: [address] - [facility] Sleep CPAP Compliance Data - Data Reviewed with Patient Average duration of nightly device use: 10 HRS 51 MINS 21 SECS Compliance rate %: 100 (08/04/23-01/30/24; 180/180 days used) Current pressure setting (cmH2O): 10-12 Average residual AHI: 5.2 Central apnea: 0.5 Obstructive apnea: 2.7 Hypopnea: 2 Average large leak: 31 secs Compliance data discussion: She says she wears the mask when trying to fall asleep. Sometimes she does not fall asleep for a couple hours. Subjective Patient concerns: denies: aerophagia, mask discomfort, air blowing in eyes, mask leak noise, condensation in mask/hose, nasal congestion, dry mouth, nose, throat, epistaxis Observed to snore while using device: No Current pressure setting perceived as: comfortable On therapy, patient: reports: sleeping better, awakening more refreshed, being more awake and alert during the day, more rested overall. denies: drowsiness while driving Initial [place] Sleepiness Scale score: 3 (in 2008) Current [place] Sleepiness Scale score: 0 (02/03/24) Allergies and Home Medications Known drug allergies: No Drug allergies reviewed: Yes Home medication list reviewed: Yes (Atorvastatin 40 mg daily) Allergy and home medication list: Allergies No Known Drug Allergies Allergy (Verified 02/03/24 10:41) Review of Systems Review of systems same as previous: No (high cholesterol) Physical Exam Vital signs obtained and entered by: AMAIRANI Murphy MA Blood Pressure: 136/87 (LEFT ARM) Cuff size: long Heart Rate: 75 O2 Saturation: 96 Height: 5 ft 5 in Weight: 255 lb 6.4 oz Weight change since last visit: 2 lb gain Body Mass Index: 42.5 BMI Classification: Morbidly Obese Impression and Plan 1. Obstructive Sleep Apnea-Hypopnea Syndrome, very severe, with good treatment compliance and good apnea control with minimal elevation of residual AHI. On CPAP therapy, the patient has better sleep quality and is more rested overall. She has significant improvement of her sleep apnea and is comfortable with CPAP use. She says she still has difficulty falling asleep. She will lay down early to ensure she can go to sleep and get enough. She ends up wearing her CPAP mask for up to 10 hours but says her smart watch only records 5 or so hours of sleep. She usually gets up at the same time every morning. I advised restricting her bedtime to lay down when sleepy to try to go to sleep easier but she does not think this will help her get adequate amount of sleep. Goals for apnea control discussed. Patient's apnea severity and rationale for treatment to reduce apnea, improve sleep quality and reduce cardiovascular and cerebrovascular events was reviewed. I also reviewed the benefit of consistent device use of CPAP for hypertension, depression. 2. Obesity, unspecified. Currently patients BMI is 42.5. Obesity increases the risk of apnea, CPAP pressure requirements and overall health risks especially cardiovascular and diabetes. Thus patient is advised to lose weight. * Continue auto CPAP pressure at 10-12 cmH2O * Update supply prescription * Notify me if snoring with mask or feeling that the pressure is too much or too little * Attempt to lose weight * Call this office if any problems using CPAP * Return for follow up in 12 months, or sooner if concerns arise Counseling Topics: Weight loss health impact Prescriptions: Device supplies Follow up with Sleep Care in: 1 year Visit Type: In Office Time Spent with Patient (minutes): 20 Provider Statement: I spent 100% of the Face to Face Visit with the patient with greater than 50% spent counseling the patient and coordination of care.
[2024-02-03 11:52] VITALS: BP 136/87; O2SAT 96
== END 2024-02-03 10:38 | disposition home or self-care (01) ==
LOC: SC 10:37
PROVIDERS: ATTEND Nurse Practitioner Family
DX: G47.33 Obstructive sleep apnea (adult) (pediatric) (principal); E66.01 Morbid (severe) obesity due to excess calories; Z68.41 Body mass index [BMI] 40.0-44.9, adult
CPT/HCPCS: 99213; G0463; 99212